=== PATIENT | male | born 1945 | race Caucasian/White ===

== ENCOUNTER 2016-12-24 07:55 | Outpatient (CLI) | payer MEDICARE, OTHER ==
[~2016-12-24] VITALS: Ht 172.7 cm; Wt 85.9 kg
--- NOTE | ~2016-12-24 | OP ---
PATIENT NAME: RYLEY NETTLES MEDICAL RECORD: [id number] :41 LOCATION:D.CAT ADMISSION DATE: SURGEON: LAMIN MELISSA MD DATE OF OPERATION: 12/24/2016 PROCEDURES: 1. PTCA stent LAD. 2. Selective coronary angiography. 3. Left heart catheterization. 4. Left ventriculogram. INDICATION: Angina and coronary artery disease. PROCEDURE IN DETAIL: After informed consent was obtained and after a detailed explanation of the risks, benefits, as well as alternative therapies, the patient elected to proceed with angiogram and angioplasty. The right femoral area is prepped and draped in normal sterile fashion. The right femoral artery was cannulated via modified Seldinger technique with placement of 6-Burmese sheath. All catheters exchanged through this sheath. FINDINGS: Left ventriculogram was performed in standard 30-degree ESTES view, reveals good cardiac wall motion throughout all segments. Overall ejection fraction estimated at 55%. SELECTIVE CORONARY ANGIOGRAPHY: 1. Left main showed no significant angiographic disease. 2. Left anterior descending has previously placed stents, these are widely patent; however, there is 75% stenosis proximal to this. There is approximately a 10 mm lesion and a 3.5-mm vessel with FRANCHESKA 3 flow. 3. The left circumflex shows mild irregularities, but no flow-limiting stenosis. 4. Right coronary has previously placed stents with no significant restenosis. No disease elsewise throughout the RCA or its branches. PTCA STENT OF THE LAD: The stent used was a 3.5 x 11 mm BioFreedom stent. Result was 0% residual stenosis, FRANCHESKA-3 flow. IMPRESSION: Successful percutaneous transluminal coronary angioplasty stent of the left anterior descending going from 75% initial stenosis to 0% residual. TRANSINT:[id number] Voice Confirmation ID: [id number] DOCUMENT ID: [id number] LAMIN MELISSA MD CC: [id number] DICTATION DATE: 12/24/16 1051 HEAD END DESIZING MACHINE OPERATOR: 12/24/16 2136 [facility] CLI 12/24/16 [place] [id number]
--- NOTE | ~2016-12-24 | HEMODYNAMI ---
PATIENT:RYLEY NETTLES MEDICAL RECORD: [id number] : 41 LOCATION:DCaitlynCAT ADMISSION DATE: 12/24/16 Generatedon:12/24/201610:49 Patient name: RYLEY NETTLES Patient #: [id number] SSN: DO B: 1945 Date of study: 12/24/2016 Page: Of Hemodynamic Procedure Report Patient Data Patient Demographics Procedure consent was obtained First Name: RYLEY Gender: Male Last Name: YOON : 1945 [facility] Initial: LEILANI Age: 71 year(s) Patient #: [id number] Race: Additional ID: [id number] Contact details Address: [address] [place] [address] [place] State: [place] City: [place] Zip code: [address] Past Medical History History of disease Date Diagnosis Comments Arrhythmias - Supraventricular tachycardias->Persistent AF Diabetes Hypertension Allergies: No known allergies Admission Admission Data Admission Date: 12/24/2016 Admission Time: 7:55 Admit Source: Other Insurance Payor: Medicare Height (in.): 68 BSA: 2 (m2) Height (cm.): 172.72 BMI: 28.74 (kg/m2) Weight (lbs.): 189 Weight (kg.): 85.73 Lab Results Lab Result Date: 12/24/2016 Lab Result Time: 0:00 Biochemistry Name Units Result Min Max BUN mg/dl 21 --(----)-* 7 18 CK-MB ng/ml 1.3 --(-*--)-- 0 3.6 Creatinine mg/dl 1 --(--*-)-- 0.6 1.3 Creatinine l 110 --(-*--)-- 21 215 Kinase Troponin l ng/ml 0.043 --(--*-)-- 0 0.06 CBC Name Units Result Min Max Hematocrit % 39.1 -*(----)-- 42 54 Hemoglobin g/dl 13.2 -*(----)-- 13.5 17.5 Platelets 10^3/l 128 -*(----)-- 130 400 Procedure Procedure Types Cath Procedure Diagnostic Procedure [facility] w/Coronaries PCI Procedure Coronary Stent Initial Miscellaneous Procedures Moderate Sedation up to 15 minutes Procedure Description Procedure Date Procedure Date: 12/24/2016 Procedure Start Time: 10:30 Procedure End Time: 10:46 Procedure Staff Name Function Rick Kumar MD Performing Physician Derrell Morel RT Scrub Vanessa Sweet RN Nurse Sindi Oglesby RT Monitor Procedure Data Cath Procedure Fluoroscopy Diagnostic fluoroscopy Total fluoroscopy Time: 2.4 time: 2.4 min min Contrast Material Contrast Material Type Amount (ml) Isovue 300 94 Entry Location Entry Primary Successful Side Size Upsize Upsize Entry Closure Succes sful Closure Location (Fr) 1 (Fr) 2 (Fr) Remarks Device Remarks Femoral Right 5 Fr 6 Fr Exoseal artery Short Estimated blood loss: 10 ml Diagnostic catheters Device Type Used For End Catheter Placement Cordis 5Fr Pigtail LV Angiography Catheter (MP) Cordis 5Fr JL 4.0 Catheter (MP) Cordis 5Fr 3DRC Catheter Right Coronary (MP) Angiography Procedure Complications No complications Procedure Medications Medication Administration Route Dosage Oxygen NC 2 l/min Heparin Flush Bag added to field 2 bags (1000units/500ml NS) Lidocaine 2% added to field 20 Fentanyl I.V. 50 mcg Versed I.V. 1 mg Fentanyl I.V. 25 mcg Versed I.V. 0.5 mg Heparin Bolus I.V. 4000 units Integrilin (Bolus I.V. 7.9 ml 2mg/ml) Fentanyl I.V. 25 mcg Versed I.V. 0.5 mg Plavix P.O. 600 mg Hemodynamics Rest BSA: 2 (m2) HGB: 13.2 (g/dl) O2 Consumption: Estimated: 215.87 (ml/min) O2 Consu mption indexed: Estimated:107.94 (ml/min/m) Heart Rate: 51 (bpm) Snapshots Pre Cath Intra NCS Post Cath Vital Signs Time Heart Resp SPO2 NIBP (mmHg) Rhythm Pain Sedation Rate (ipm) (%) Status Level (bpm) 10:18:07 45 20 100 186/80(103) NSR 0 (11) 10(A) , No pain 10:22:46 48 17 100 160/116(153) NSR 0 (11) 10(A) , No pain 10:28:05 45 19 99 149/77(130) NSR 0 (11) 9(A) , No pain 10:32:32 47 22 98 151/74(126) NSR 0 (11) 9(A) , No pain 10:36:43 54 17 94 131/77(116) NSR 0 (11) 9(A) , No pain 10:40:59 55 18 95 130/72(115) NSR 0 (11) 10(A) , No pain 10:45:20 53 28 96 127/74(92) NSR 0 (11) 10(A) , No pain Medications Time Medication Route Dose Verified Delivered Reason Notes Effectiveness by by 10:18:35 Oxygen NC 2 Vanessa Vanessa used for l/min Sweet Sweet emissions repair technician RN 10:18:43 Heparin Flush added 2 Vanessa Vanessa used for Bag to bags Sweet Sweet procedure (1000units/500ml field RN RN NS) 10:18:53 Lidocaine 2% added 20ml Vanessa Vanessa used for to vial Sweet Sweet procedure field RN RN 10:27:54 Fentanyl I.V. 50 Vanessa Vanessa for sedation mcg Sweet Sweet RN RN 10:28:01 Versed I.V. 1 mg Vanessa Vanessa for sedation Sweet Sweet RN RN 10:30:29 Fentanyl I.V. 25 Vanessa Vanessa for sedation mcg Sweet Sweet RN RN 10:30:35 Versed I.V. 0.5 Vanessa Vanessa for sedation mg Sweet Sweet RN RN 10:36:57 Integrilin I.V. 7.9 Vanessa Vanessa for 2.1 (Bolus 2mg/ml) ml Sweet Sweet anticoagulation INTEGRILIN RN RN WASTED 10:36:58 Heparin Bolus I.V. 4000 Vanessa Vanessa for units Sweet Sweet anticoagulation RN RN 10:37:51 Fentanyl I.V. 25 Vanessa Vanessa for sedation mcg Sweet Sweet RN RN 10:38:01 Versed I.V. 0.5 Vanessa Vanessa for sedation mg Sweet Sweet RN RN 10:40:41 Plavix P.O. 600 Vanessa Vanessa for mg Sweet Sweet antiplatelet RN RN therapy Procedure Log Time Note 10:03:35 Vanessa Sweet RN sent for patient. Start room use. 10:03:36 Time tracking: Regular hours 10:03:40 Plan of Care:Hemodynamics will remain stable., Cardiac rhythm will remain stable., Comfort level will be maintained., Respiratory function will remain adequate., Patient/ family verbilizes understanding of procedure., Procedure tolerated without complication., Recovers from procedure without complications.. 10:03:44 Use device set Femoral Dx 10:03:47 Acist Syringe opened to sterile field. 10:03:47 Bag Decanter opened to sterile field. 10:03:48 Medline Cath Pack opened to sterile field. 10:03:49 Terumo 5Fr [place] Sheath opened to sterile field. 10:03:49 St Chris 260cm J .035 wire opened to sterile field. 10:03:50 Acist Hand Control opened to sterile field. 10:03:51 Acist Manifold opened to sterile field. 10:03:51 Diagnostic Infinity 5Fr Multipack catheter opened to sterile field. 10:03:52 Tegaderm 4 x 4 opened to sterile field. 10:08:54 Patient received from Pre/Post Procedure Room to CCL 1 Alert and oriented. Tansferred to table in Supine position. 10:08:55 Warm blankets applied, and al hugger turned on for patient comfort. 10:08:55 Correct patient and procedure confirmed by team. 10:08:57 Signed procedure consent form obtained from patient. 10:08:58 ECG and BP/O2 sat monitors applied to patient. 10:16:38 Vital chart was started 10:16:39 Baseline sample Acquired. 10:16:43 Rhythm: sinus bradycardia 10:16:45 Full Disclosure recording started 10:16:51 H&P Date Dictated: 12/13/2016 Within 30 days and on chart., H&P Addendum completed by physician on day of procedure. (MUST COMPLETE FOR ALL OUTPATIENTS). 10:16:52 Pre-procedure instructions explained to patient. 10:16:52 Pre-op teaching completed and patient verbalized understanding. 10:16:53 Family in waiting room. 10:16:56 Patient NPO since Midnight. 10:17:01 Patient allergic to No known allergies 10:17:04 Is the patient allergic to Iodine/contrast media? No. 10:17:06 Is patient on blood thinner?No 10:17:08 Patient diabetic? Yes. 10:17:09 If diabetic: On Metformin? Yes 10:17:11 If on Metformin: Last Dose? 12/22/2016 10:17:16 Previous problem with sedation/anesthesia? No ? 10:17:17 Snore? Yes 10:17:18 Sleep apnea? No 10:17:19 Deviated septum? No 10:17:20 Opens mouth fully? Yes 10:17:21 Sticks out tongue? Yes 10:17:23 Airway obstruction? No ? 10:17:26 Dentures? No ? 10:18:35 Oxygen 2 l/min NC was administered by Vanessa Sweet RN; used for procedure; 10:18:43 Heparin Flush Bag (1000units/500ml NS) 2 bags added to field was administered by Vanessa Sweet RN; used for procedure; 10:18:49 Pre procedure: right dorsailis pedis pulse 2+ Normal; easily identifiable; not easily obliterated 10:18:52 Patient pain scale 0/10 ?. 10:18:53 Lidocaine 2% 20ml vial added to field was administered by Vanessa Sweet RN; used for procedure; 10:19:05 IV patent on arrival in left hand with 0.9% NaCl at [facility]. 10:22:31 Lab Result : BUN 21 mg/dl 10:22:31 Lab Result : CK-MB 1.3 ng/ml 10:22:31 Lab Result : Creatinine 1 mg/dl 10:22:31 Lab Result : Creatinine Kinase 110 l 10:22:31 Lab Result : Hemoglobin 13.2 g/dl 10:22:31 Lab Result : Troponin l 0.043 ng/ml 10:22:31 Lab Result : Platelets 128 10^3/l 10:22:31 Lab Result : Hematocrit 39.1 % 10:22:35 Lab results completed and on chart. 10:22:37 Right groin area was prepped with chlora-prep and draped in sterile fashion 10:22:38 Alarms reviewed by R. N. 10:22:39 Sharps counted by scrub and verified by R.N. 10:22:50 Patient Height : 172.72 cm 10:22:53 Patient Weight : 85.73 kg 10:22:56 Admit Source: Other 10:23:01 Insurance Payor : Medicare 10:27:15 Zero performed for pressure channel P1 10:27:18 Final Timeout: patient, procedure, and site verified with staff and physician. All members of the team are in agreement. 10:27:20 Right groin site verified by team. 10:27:23 Physical assessment completed. ASA score P 2 - A patient with mild systemic disease as per Rick Kumar MD. 10:27:26 Sedation plan: IV Moderate Sedation Versed, Fentanyl 10:27:54 Fentanyl 50 mcg I.V. was administered by Vanessa Sweet RN; for sedation; 10::01 Versed 1 mg I.V. was administered by Vanessa Sweet RN; for sedation; 10:29:21 Procedure started. 10:30:17 Local anesthetic to right femoral artery with Lidocaine 2% by Rick Kumar MD.INITIAL ACCESS ONLY 10::29 Fentanyl 25 mcg I.V. was administered by Vanessa Sweet RN; for sedation; 10:30:35 Versed 0.5 mg I.V. was administered by Vanessa Sweet RN; for sedation; 10::53 A 5 Fr sheath was inserted into the Right Femoral artery 10:31:18 A Cordis 5Fr Pigtail Catheter (MP) was advanced over the wire and used for LV Angiography. 10:32:25 LV gram done using ESTES 10:32:29 EF : 60 % 10:32:33 Injector settings: Ml/sec: 10, Volume: 20, 10:32:53 A Cordis 5Fr JL 4.0 Catheter (MP) was advanced over the wire and used for . 10:33:39 Merit BasixCompak Inflation Kit opened to sterile field. 10:33:40 Terumo 6Fr [place] Sheath opened to sterile field. 10:33:40 Murrell Whisper J 300cm 0.014 guide wire opened to sterile field. 10:33:43 Catheter removed. 10:33:48 A Cordis 5Fr 3DRC Catheter (MP) was advanced over the wire and used for Right Coronary Angiography. 10:34:31 Catheter removed. 10:34:52 Sheath upsized to a 6 Fr Short. 10:35:33 6 Fr XB 3.5 guide catheter was inserted over the wire 10:35:46 Cordis 6FR XB 3.5 guide catheter opened to sterile field. 10:36:56 Whisper wire advanced. 10:36:57 Integrilin (Bolus 2mg/ml) 7.9 ml I.V. was administered by Vanessa Sweet RN; for anticoagulation; 2.1 INTEGRILIN WASTED 10:36:58 Heparin Bolus 4000 units I.V. was administered by Vanessa Sweet RN; for anticoagulation; 10:37:51 Fentanyl 25 mcg I.V. was administered by Vanessa Sweet RN; for sedation; 10:38:01 Versed 0.5 mg I.V. was administered by Vanessa Sweet RN; for sedation; 10:38:51 Inflation Number: 1 A Biofreedom 3.5 x 11 stent (No Cost Implant) was prepped and advanced across the Prox LAD. The stent was deployed at 11 YVAN for 0:04 (min:sec). 10:38:59 Stent catheter was removed intact over wire. 10:38:59 Wire removed. 10:39:00 Guide catheter removed. 10:39:10 Sheath removed intact; hemostasis achieved with Exoseal to the Right Femoral artery. 10:39:13 Procedure ended.(Physican Out) 10:39:18 Fluoroscopy time 02.40 minutes. 10:40:02 Contrast amount:Isovue 300 94ml. 10:40:41 Plavix 600 mg P.O. was administered by Vanessa Sweet RN; for antiplatelet therapy; 10:40:42 Sharps counted by scrub and verified by R.N. 10:40:43 Insertion/operative site no bleeding no hematoma. 10:41:42 Post right femoral artery:stable, clean and dry 10:41:44 Post Procedure Pulses reassessed and unchanged 10:42:02 Post procedure: right dorsailis pedis pulse 2+ Normal; easily identifiable; not easily obliterated. 10:42:04 Post-procedure physical assessment completed. ASA score P 2 - A patient with mild systemic disease as per Rick Kumar MD. 10:42:07 Post procedure rhythm: unchanged. 10:42:09 Estimated blood loss: 10 ml 10:42:13 Post procedure instruction explained to patient.Patient verbalizes understanding. 10:42:14 Patient needs reinforcement of post procedure teaching. 10:42:45 Procedure type changed to Cath procedure, Diagnostic procedure, LHC, LHC w/Coronaries, PCI procedure, Coronary Stent Initial, Miscellaneous Procedures, Moderate Sedation up to 15 minutes 10:43:30 Procedure Complication : No complications 10:44:38 Cordis 6Fr Exoseal opened to sterile field. 10:45:44 Flouro Dose 2091.44 cGy/cm 10:46:25 Procedure and supply charges have been captured, reviewed, submitted and are correct. 10:46:26 See physician's report for complete and final results. 10:46:37 Vital chart was stopped 10:46:38 Report given to Pre/Post Procedure Room. 10:46:41 Patient transfered to Pre/Post Procedure Room with Stretcher. 10:46:47 Procedure ended. 10:46:47 Full Disclosure recording stopped 10:46:52 End room use (Document Last) Intervention Summary Intervention Notes Time ActionType Lesion and Equipment Action# Pressure Duration Attributes Used 10:38:51 Place stent Prox LAD Biofreedom 1 11 00:05 3.5 x 11 stent (No Cost Implant) Device Usage Item Name Manufacture Quantity Catalog Hospital Part Current Minimal Lot# / Number Charge Number Stock Stock Serial# Code Acist Acist 1 27905 648541 746173 125190 20 Syringe Medical Systems Inc Bag Microtek 1 2002S 680867 26886 258153 5 Decanter Medical Inc. Medline Cardinal 1 [id number] 362897 69872 311049 5 Cath Pack Health Terumo 5Fr Terumo 1 [id number] 293942 766452 905037 [address] Chris 1 994376 296983 962510 084705 30 260cm J .035 wire Acist Hand Acist 1 69143 240846 857915 187071 5 Control Medical Systems Inc Acist Acist 1 27241 807832 451565 719987 5 Manifold Medical Systems Inc Diagnostic Cardinal 1 [id number] 103645 53636 814560 30 Infinity Health 5Fr Multipack catheter Tegaderm 4 3M 1 1626W 542992 600434 159379 5 x 4 Cordis 5Fr Cardinal 1 [id number] 5 Pigtail Health Catheter (MP) Cordis 5Fr Cardinal 1 457300 5 JL 4.0 Health Catheter (MP) Merit Merit 1 [id number] 237250 197311 519620 15 BasixSarta Medical Inflation Kit Terumo 6Fr Terumo 1 [id number] 347578 174103 780420 40 [place] Sheath Murrell Murrell 1 [id number] 557587 921912 629714 5 Whisper J Vascular 300cm 0.014 guide wire Cordis 5Fr Cardinal 1 [id number] 5 [facility] Health Catheter (MP) Cordis 6FR Cardinal 1 [id number] 434634 678627 300949 2 XB 3.5 Health guide catheter Biofreedom Biosensors 1 [facility]2-3511 363227 565800 5 [id number] 3.5 x 11 [place] SA stent (No Cost Implant) Cordis 6Fr Cardinal 1 EX600 404006 062247 268250 10 [facility] iCIMS Signature Audit [place] Stage Time Signature Unsigned Intra-Procedure 12/24/2016 Sindi 10:49:03 AM Counts RT(R) Signatures Monitor : Sindi Signature : Counts RT Date : Time : [address] [address]
[~2016-12-24 07:55] MED LIST: ASPIRIN81 MG; FLOMAX0.4 MG; HYZAAR 100-12.51 TAB; JANUMET 50-1,001 TAB; LOVASTATIN20 MG PO; MULTIPLE VITAMI1 TA1; MYSOLINE 50 MG50 MG PO; PLAVIX75 MG PO; PROPRANOLOL HCL80 MG; VITAMIN B-121000 MCG
[2016-12-24 08:45] LABS: BASOPHILS 0.7 % (0-2); EOSINOPHILS 9.3 % (0-7); HEMATOCRIT 39.1 % (42.0-54.0); HEMOGLOBIN 13.2 g/dL (13.5-17.5); LYMPHOCYTES 30.5 % (15-50); MCH 33.3 pg (26.0-34.0); MCHC 33.8 g/dL (31.0-37.0); MCV 98.7 fL (80.0-100.0); MEAN PLATELET VOLUME 10.4 fL (7.4-10.4); MONOCYTES 11.5 % (2-11); PLATELET COUNT 128 10x3/uL (130-400); RBC 3.96 10x6/uL (4.20-6.10); RDW 12.3 % (11.5-14.5); WBC 4.4 10x3/uL (4.8-10.8)
[2016-12-24] MEDS ORDERED: BETAPACE160 MG PO (08:47)
[2016-12-24] MEDS ORDERED: GLUCOTROL 5 MG T5 MG PO (08:48)
[2016-12-24] MEDS ORDERED: PROPRANOLOL HCL80 MG PO (08:49)
[2016-12-24 08:57] VITALS: BP 159/71; Ht 172.7 cm; Wt 85.9 kg
[2016-12-24 09:13] LABS: CALC OSMOLALITY 281 mosm/kg (275-300); CALCIUM 8.7 mg/dL (8.5-10.1); CARBON DIOXIDE 28.5 mmol/L (21.0-32.0); CHLORIDE - SERUM 102 mmol/L (98-107); CKMB 1.3 U/L (0.0-3.6); CREATINE KINASE 110 UL (21-232); GLUCOSE 182 mg/dL (74-106); POTASSIUM - SERUM 4.1 mmol/L (3.5-5.1); SODIUM 137 mmol/L (136-145); TROPONIN-I 0.043 ng/mL (0.000-0.060); UREA NITROGEN 21 mg/dL (7-18); eGFR NON AFRICAN AMERICAN 78 mL/min (90-120)
[2016-12-24] MEDS ORDERED: IBUPROFEN400 MG PO (10:17)
--- NOTE | 2016-12-24 11:05 | NUR ---
1100 RECEIVED PT FROM CMV DRIVER, PT IS DROWSY, DENIES ANY C/O CHEST PAIN OR NAUSEA. BP 130/69, SINUS BRADYCARDIA RATE 47. RR IS EVEN AND UNLABORED, ON O2 AT 2 LPM VIA NC. DRESSING TO RIGHT GROIN IS CDI, NO BLEEDING OR HEMATOMA NOTED, AREA IS SOFT AND NONTENDER. PEDAL PULSES PALPABLE. CAP REFILL IS BRISK AND FEET WARM. FAMILY AT BEDSIDE, WILL CONTINUE TO MONITOR.
[2016-12-24] MEDS ORDERED: PLAVIX75 MG PO (11:07)
--- NOTE | 2016-12-24 11:30 | NUR ---
1130 VSS WITH CHEST PAIN DENIED 6 FR EXOSEAL R/GROIN CDI NO BLEEDING NO HEMATOMA NOTED. INSTRUCTED PATIENT TO KEEP HEAD FLAT ON PILLOW WITH RLE STRAIGHT
--- NOTE | 2016-12-24 11:45 | NUR ---
RESTING QUIETLY. VSS. 2L NC, NO RESP DISTRESS NOTED. RIGHT WRIST TR BAND IN PLACE, NO BLEEDING OR HEMATOMA NOTED. NO C/O CHEST PAIN OR NAUSEA AT THIS TIME. AT BEDSIDE, CALL LIGHT WITHIN REACH.
--- NOTE | 2016-12-24 12:16 | NUR ---
2L NC, NO RESP DISTRESS NOTED. VSS. RIGHT WRIST TR BAND IN PLACE, NO BLEEDING OR HEMATOMA NOTED. WILL CONTINUE TO MONITOR.
--- NOTE | 2016-12-24 13:15 | NUR ---
RESTING QUIETLY. VSS. 2L NC, NO RESP DISTRESS NOTED. SANDWICH TRAY AND DRINK GIVEN. NO C/O AT THIS TIME.
--- NOTE | 2016-12-24 14:25 | NUR ---
HOB ELEVATED 30 DEGREES. RIGHT GROIN 6F EXO CDI, NO BLEEDING OR HEMATOMA NOTED.
--- NOTE | 2016-12-24 14:45 | NUR ---
LEFT HAND PIV D/C'D WITH CATHETER INTACT, BAND AID TO SITE. UP TO BEDSIDE TO GET DRESSED.
--- NOTE | 2016-12-24 14:52 | NUR ---
UP TO RESTROOM TO VOID.
--- NOTE | 2016-12-24 14:56 | NUR ---
DISCHARGE INSTRUCTIONS GIVEN, VERBALIZED UNDERSTANDING. PLAVIX PRESCRIPTION GIVEN, CALLED IN TO [facility] ON [address].
--- NOTE | 2016-12-24 15:03 | NUR ---
TAKEN OUT VIA WHEELCHAIR BY CATH CHIEF LIBRARIAN BRANCH. LEFT FACILITY WITH AND ALL PERSONAL BELONGINGS.
== END 2016-12-24 15:03 | disposition home or self-care (01) ==
LOC: D.CATH 07:55
PROVIDERS: Internal Medicine Interventional Cardiology
DX: I25.119 Atherosclerotic heart disease of native coronary artery with unspecified angina pectoris (principal); Z95.5 Presence of coronary angioplasty implant and graft; Z00.6 Encounter for examination for normal comparison and control in clinical research program; Z01.812 Encounter for preprocedural laboratory examination
CPT/HCPCS: 93458; C9600

== ENCOUNTER 2017-06-19 07:26 | Outpatient (CLI) | payer MEDICARE, OTHER ==
[~2017-06-19] VITALS: Ht 172.7 cm; Wt 86.4 kg
--- NOTE | ~2017-06-19 | HEMODYNAMI ---
PATIENT:RYLEY NETTLES MEDICAL RECORD: [id number] : 41 LOCATION:D.CAT ADMISSION DATE: 06/19/17 Generatedon:06/19/20179:15 Patient name: RYLEY NETTLES Patient #: [id number] SSN: DO B: 1945 Date of study: 06/19/2017 Page: Of Hemodynamic Procedure Report Patient Data Patient Demographics Procedure consent was obtained First Name: RYLEY Gender: Male Last Name: YOON : 1945 [facility] Initial: LEILANI Age: 72 year(s) Patient #: [id number] Race: Additional ID: [id number] Contact details Address: [address] [place] [address] [place] State: [place] City: [place] Zip code: [address] Past Medical History History of disease Date Diagnosis Comments Arrhythmias - Supraventricular tachycardias->Persistent AF Diabetes Hypertension Allergies: No known allergies Admission Admission Data Admission Date: 06/19/2017 Admission Time: 7:26 Height (in.): 5.9 BSA: 0.34 (m2) Height (cm.): 14.99 BMI: 3797.1 (kg/m2) Weight (lbs.): 188 Weight (kg.): 85.28 Procedure Procedure Types Cath Procedure Miscellaneous Procedures Moderate Sedation up to 15 minutes Peripheral Cath Diagnostic Procedure Cath Peripheral Jlirl-Iqghqbw-Zur-Off Procedure Description Procedure Date Procedure Date: 06/19/2017 Procedure Start Time: 9:10 Procedure End Time: 9:15 Procedure Staff Name Function Rick Kumar MD Performing Physician Sindi Oglesby RT Monitor Meeta Dumont RT Scrub Anton Oleary RN Nurse Colt Zhu RN Child & Adolescent Psychiatrist Procedure Data Cath Procedure Fluoroscopy Diagnostic fluoroscopy Total fluoroscopy Time: 0.2 time: 0.2 min min Diagnostic fluoroscopy Total fluoroscopy dose: 154 dose: 154 mGy mGy Contrast Material Contrast Material Type Amount (ml) Isovue 300 40 Entry Location Entry Primary Successful Side Size Upsize Upsize Entry Closure Succes sful Closure Location (Fr) 1 (Fr) 2 (Fr) Remarks Device Remarks Femoral Right 5 Fr Exoseal artery Estimated blood loss: 5 ml Diagnostic catheters Device Type Used For End Catheter Placement DIAGNOSTIC UF 5Fr Abdominal catheter ([id number]) aortogram with runoff Procedure Complications No complications Procedure Medications Medication Administration Route Dosage 0.9% NaCl I.V. 100 ml/hr Oxygen NC 2 l/min Heparin Flush Bag added to field 2 bags (1000units/500ml NS) Lidocaine 2% added to field 20 Versed I.V. 1 mg Fentanyl I.V. 50 mcg Hemodynamics Rest BSA: 0.34 (m2) O2 Consumption: Estimated: 36.51 (ml/min) O2 Consumption indexed: Estimated:107.38 (ml/min/m) Heart Rate: 50 (bpm) Snapshots Pre Cath Intra NCS Post Cath Vital Signs Time Heart Resp SPO2 etCO2 NIBP Rhythm Pain Sedation Rate (ipm) (%) (mmHg) (mmHg) Status Level (bpm) 8:45:02 50 22 99 29.5 132/75(93) NSR 0 (11) 10(A) , No pain 8:50:25 50 14 98 34.8 131/67(90) NSR 0 (11) 10(A) , No pain 8:55:45 49 13 96 28 123/65(86) NSR 0 (11) 10(A) , No pain 9:01:00 48 16 97 10.6 118/62(87) NSR 0 (11) 10(A) , No pain 9:05:41 46 13 99 31.8 123/63(95) NSR 0 (11) 9(A) , No pain 9:10:23 48 18 97 29.5 133/71(94) NSR 0 (11) 9(A) , No pain 9:15:08 49 14 95 34.1 125/68(89) NSR 0 (11) 9(A) , No pain Medications Time Medication Route Dose Verified Delivered Reason Notes Effec tiveness by by 8:46:33 0.9% NaCl I.V. 100 Anton Anton Per ml/hr Anirudh brown RN RN 8:46:45 Oxygen NC 2 Anton Anton Per l/min Anirudh brown RN RN 8:47:07 Heparin Flush added 2 Anton Anton used for Bag to bags Lorigan Lorigan procedure (1000units/500ml field RN RN NS) 8:47:23 Lidocaine 2% added 20ml Anton Anton for local to vial Lorigan Lorigan anesthetic field RN RN 9:07:52 Versed I.V. 1 mg Anton Anton for Lorigan Lorigan sedation RN RN 9:08:04 Fentanyl I.V. 50 Anton Anton for mcg Lorigan Lorigan sedation RN economic adviser Log Time Note 8:25:49 Colt Zhu RN sent for patient. Start room use. 8:33:11 Patient Height : 5.9 inches 8:33:14 Patient Weight : 188 lbs 8:33:51 Time tracking: Regular hours 8:33:53 Diagnostic Cath status Elective 8:33:59 Plan of Care:Hemodynamics will remain stable., Cardiac rhythm will remain stable., Comfort level will be maintained., Respiratory function will remain adequate., Patient/ family verbilizes understanding of procedure., Procedure tolerated without complication., Recovers from procedure without complications.. 8:34:47 Patient arrived from Pre/Post Procedure Room to [facility]. Patient remains on bed/stretcher for procedure. 8:34:48 Warm blankets applied, and al hugger turned on for patient comfort. 8:34:48 Correct patient and procedure confirmed by team. 8:34:49 Signed procedure consent form obtained from patient. 8:34:50 ECG and BP/O2 sat monitors applied to patient. 8:38:52 Full Disclosure recording started 8:44:07 Vital chart was started 8:44:14 Rhythm: sinus bradycardia 8:44:27 H&P Date Dictated: 06/04/2017 Within 30 days and on chart., H&P Addendum completed by physician on day of procedure. (MUST COMPLETE FOR ALL OUTPATIENTS). 8:44:29 Pre-procedure instructions explained to patient. 8:44:29 Pre-op teaching completed and patient verbalized understanding. 8:44:32 Family in waiting room. 8:44:34 Patient NPO since Midnight. 8:44:47 Patient allergic to No known allergies 8:44:49 Is the patient allergic to Iodine/contrast media? No. 8:44:50 Is patient on blood thinner?No 8:44:55 Patient diabetic? No. 8:44:58 Previous problem with sedation/anesthesia? No ? 8:44:59 Snore? No 8:45:00 Sleep apnea? No 8:45:01 Deviated septum? No 8:45:02 Opens mouth fully? Yes 8:45:02 Sticks out tongue? Yes 8:45:04 Airway obstruction? No ? 8:45:05 Dentures? No ? 8:46:33 0.9% NaCl 100 ml/hr I.V. was administered by Anton Oleary RN; Per physician; 8:46:45 Oxygen 2 l/min NC was administered by Anton Oleary RN; Per physician; 8:47:07 Heparin Flush Bag (1000units/500ml NS) 2 bags added to field was administered by Anton Oleary RN; used for procedure; 8:47:23 Lidocaine 2% 20ml vial added to field was administered by Anton Oleary RN; for local anesthetic; 8:48:19 Pre procedure: right dorsailis pedis pulse 1+ Palpable, but thready & weak; easily obliterated 8:48:22 Pre procedure: left dorsailis pedis pulse 1+ Palpable, but thready & weak; easily obliterated 8:48:24 Patient pain scale 0/10 ?. 8:48:29 IV patent on arrival in left hand with 0.9% NaCl at [facility]. 8:48:32 Lab results completed and on chart. 8:48:35 Bilateral groins area was prepped with chlora-prep and draped in sterile fashion 8:48:36 Alarms reviewed by R. N. 8:48:36 Sharps counted by scrub and verified by R.N. 8:48:47 Use device set CATH PACK 8:48:50 ACIST Syringe ([id number]) opened to sterile field. 8:48:50 ACIST Hand Control (13399) opened to sterile field. 8:48:51 ACIST Manifold (96911) opened to sterile field. 8:48:51 Medline Cath Pack ([id number]) opened to sterile field. 8:48:52 Bag Decanter () opened to sterile field. 8:48:53 DIAGNOSTIC WIRE .035 260cm J wire ([id number]) opened to sterile field. 8:49:13 PERCUTANEOUS ENTRY 19GA needle opened to sterile field. 8:52:20 Baseline sample Acquired. 8:53:34 Zero performed for pressure channel P1 8:54:37 Physician paged 8:56:56 Procedure type changed to Cath procedure, Miscellaneous Procedures, Moderate Sedation up to 15 minutes, Peripheral Cath Diagnostic Procedure, Cath Peripheral, Utfxc-Shbzltw-Plf-Off 9:05:49 Final Timeout: patient, procedure, and site verified with staff and physician. All members of the team are in agreement. 9:05:54 Right groin site verified by team. 9:05:57 Physical assessment completed. ASA score P 2 - A patient with mild systemic disease as per Rick Kumar MD. 9:06:00 Sedation plan: IV Moderate Sedation Medication:Versed, Fentanyl 9:07:52 Versed 1 mg I.V. was administered by Anton Oleary RN; for sedation; 9:08:04 Fentanyl 50 mcg I.V. was administered by Anton Oleary RN; for sedation; 9:10:23 Procedure started. 9:10:27 Local anesthetic to right femoral artery with Lidocaine 2% by Rick Kumar MD.INITIAL ACCESS ONLY 9:10:47 A 5 Fr sheath was inserted into the Right Femoral artery 9:11:14 A DIAGNOSTIC UF 5Fr catheter ([id number]) was advanced over the wire and used for Abdominal aortogram with runoff. 9:12:25 EXOSEAL 5Fr (EX500) opened to sterile field. 9:12:30 Catheter removed. 9:12:37 Sheath removed intact; hemostasis achieved with Exoseal to the Right Femoral artery. 9:12:39 Procedure ended.(Physican Out) 9:12:48 Fluoroscopy time 00.20 minutes. 9:12:52 Flurop Dose total: 154 9:12:52 Fluoroscopy dose: 154 mGy 9:13:00 Contrast amount:Isovue 300 40ml. 9:13:02 Sharps counted by scrub and verified by R.N. 9:13:03 Insertion/operative site no bleeding no hematoma. 9:13:08 Post-op/insertion site Right Femoral artery dressed using a 4 x 4 and Tegaderm. 9:13:16 Post right femoral artery:stable, soft, clean and dry 9:13:18 Post Procedure Pulses reassessed and unchanged 9:13:20 Post-procedure physical assessment completed. ASA score P 2 - A patient with mild systemic disease as per Rick Kumar MD. 9:13:22 Post procedure rhythm: unchanged. 9:13:30 Estimated blood loss: 5 ml 9:13:31 Post procedure instruction explained to patient.Patient verbalizes understanding. 9:13:32 Patient needs reinforcement of post procedure teaching. 9:13:37 Procedure Complication : No complications 9:13:39 See physician's report for complete and final results. 9:15:03 Procedure and supply charges have been captured, reviewed, submitted and are correct. 9:15:08 Vital chart was stopped 9:15:10 Report given to Pre/Post Procedure Room. 9:15:13 Patient transfered to Pre/Post Procedure Room with Stretcher. 9:15:21 Procedure ended. 9:15:21 Full Disclosure recording stopped 9:15:23 End room use (Document Last) Device Usage Item Name Manufacture Quantity Catalog Hospital Part Current Minimal Lot# / Number Charge Number Stock Stock Serial# Code ACIST Acist 1 56479 739584 200189 266914 20 Syringe Medical (97319) Systems Inc ACIST Hand Acist 1 91028 355529 528274 047647 5 Control Medical (01999) Systems Inc ACIST Acist 1 19295 769874 313234 584794 5 Manifold Medical (60727) Systems Inc Medline Cath Cardinal 1 [id number] 586338 51939 493538 5 Pack Health ([id number]) Bag Decanter Microtek 1 2001S 814022 38574 436210 5 (2001S) Medical Inc. DIAGNOSTIC [facility] Chris 1 030580 182620 394109 663981 30 WIRE .035 260cm J wire (624419) PERCUTANEOUS Cook Medical 1 [id number] 491867 182478 5 ENTRY 19GA needle DIAGNOSTIC Cardinal 1 [id number] 176655 929560 890064 10 UF 5Fr Health catheter ([id number]) EXOSEAL 5Fr Cardinal 1 EX500 697017 370100 317978 10 (EX500) Health Signature Audit Cameron Stage Time Signature Unsigned Intra-Procedure 06/19/2017 Sindi 9:15:33 AM Counts RT(R) Signatures Monitor : Sindi Signature : Counts RT Date : Time : [facility] [address] [place] [address]
[~2017-06-19 07:26] MED LIST changes: +BETAPACE160 MG PO; +GLUCOTROL 5 MG T5 MG PO; +IBUPROFEN400 MG PO; +PROPRANOLOL HCL80 MG PO
[2017-06-19] MEDS ORDERED: FLUTICASONE PRO16 GM NASAL (07:46)
[2017-06-19] MEDS ORDERED: ZONEGRAN100 MG PO (07:49)
[2017-06-19 07:54] VITALS: BP 149/55; Ht 172.7 cm; Wt 86.4 kg
[2017-06-19 08:06] LABS: BASOPHILS 0.4 % (0-2); EOSINOPHILS 8.6 % (0-7); HEMATOCRIT 40.3 % (42.0-54.0); HEMOGLOBIN 13.8 g/dL (13.5-17.5); IMMATURE GRANULOCYTES 0.4 % (0-5); LYMPHOCYTES 29.9 % (15-50); MCH 33.2 pg (26.0-34.0); MCHC 34.2 g/dL (31.0-37.0); MCV 96.9 fL (80.0-100.0); MEAN PLATELET VOLUME 10.4 fL (7.4-10.4); MONOCYTES 8.4 % (2-11); NEUTROPHILS 52.3 % (40-80); RBC 4.16 10x6/uL (4.20-6.10); RDW 12.5 % (11.5-14.5); WBC 5.7 10x3/uL (4.8-10.8)
[2017-06-19 08:10] LABS: PLATELET COUNT 157 10x3/uL (130-400)
[2017-06-19 08:16] LABS: ANION GAP 15.7 mmol/L (8-16); CALCIUM 8.8 mg/dL (8.5-10.1); CARBON DIOXIDE 24.6 mmol/L (21.0-32.0); CREATININE - SERUM 1.1 mg/dL (0.6-1.3); POTASSIUM - SERUM 4.3 mmol/L (3.5-5.1)
--- NOTE | 2017-06-19 09:58 | NUR ---
0940 LYING FLAT, ROOM AIR. SINUS FRANCISCO ON FILM OR TAPE LIBRARIAN, RATE 53 WNO C/O CHEST PAIN. PULSES PALP X 4 WITH BRISK CAP REFILL. R GROIN 5F EXOSEAL C/D/I W NO HEMATOMA OR BLEEDING. AT BEDSIDE. DISCUSSED IMPORTANCE OF KEEPING RLE STRAIGHT AND HEAD FLAT ON PILLOW TO PREVENT BLEEDING.
--- NOTE | 2017-06-19 10:35 | NUR ---
1010 REMAINS FLAT, ROOM AIR. ALL VITALS WNL. EATING TURKEY SANDWICH AND SIPPING WATER WITH ASSIST FROM . R GROIN REMAINS C/D/I W NO HEMATOMA OR BLEEDING.
--- NOTE | 2017-06-19 11:01 | NUR ---
1100 HOB ELEVATED, PIV REMOVED FROM LEFT HAND WITH BANDAID APPLIED. WILL MONITOR R GROIN FOR BLEEDING. AT BEDSIDE.
--- NOTE | 2017-06-19 11:15 | NUR ---
RIGHT GROIN 5F EXOSEAL CDI, NO BLEEDING OR HEMATOMA NOTED. UP TO BEDSIDE TO GET DRESSED.
--- NOTE | 2017-06-19 11:20 | NUR ---
AMBULATED TO RESTROOM TO VOID.
--- NOTE | 2017-06-19 11:27 | NUR ---
DISCHARGE INSTRUCTIONS GIVEN, VERBALIZED UNDERSTANDING.
--- NOTE | 2017-06-19 11:40 | NUR ---
TAKEN OUT VIA WHEELCHAIR BY CATH SPECIAL LIBRARIAN. LEFT FACILITY WITH FAMILY AND ALL PERSONAL BELONGINGS.
--- NOTE | 2017-06-25 12:15 | OP ---
PATIENT NAME: RYLEY NETTLES MEDICAL RECORD: [id number] :41 LOCATION:D.CAT ADMISSION DATE: SURGEON: LAMIN MELISSA MD DATE OF OPERATION: 06/19/2017 PROCEDURES: 1. Aortofemoral runoff. 2. Abdominal aortography. INDICATION: Leg pain compatible with claudication. PROCEDURE IN DETAIL: After informed consent was obtained and after detailed explanation of risks, benefits as well as alternative therapies, the patient elected to proceed with angiogram and aortofemoral runoff. The right femoral area was prepped and draped in normal sterile fashion. Right femoral artery was cannulated via modified Seldinger technique with placement of 5-Italian sheath. All catheters were exchanged through this sheath. FINDINGS: The abdominal aortography was performed. The catheter was pulled down for aortofemoral runoff. Abdominal aortography reveals no significant abdominal aortic disease. No dissection or aneurysm formation. No renal artery stenosis. RIGHT LEG: a. Iliac: The common internal and external iliacs have mild irregularities, but no flow-limiting stenosis. b. Femoral system: The common, superficial, and deep femoral have mild irregularities, but no flow-limiting stenosis. c. Popliteal and infrapopliteal vessels are widely patent with good 3-vessel runoff to the foot. LEFT LEG: a. Iliac: The common internal and external iliacs have mild irregularities, but no flow-limiting stenosis. b. Femoral system: The common, superficial, and deep femoral have mild irregularities, but no flow-limiting stenosis. c. Popliteal and infrapopliteal vessels are widely patent with good 3-vessel runoff to the foot. OVERALL IMPRESSION: No significant peripheral vascular disease, leg pain is non-arterial vascular in etiology. TRANSINT:[id number] Voice Confirmation ID: [id number] DOCUMENT ID: [id number] LAMIN MELISSA MD at 1215 CC: [id number] DICTATION DATE: 06/19/17917 WELDER ASSEMBLER: 06/19/17 1207 DEP CLI 06/19/17 [place] [id number]
== END 2017-06-19 11:40 | disposition home or self-care (01) ==
LOC: D.CATH 07:26
PROVIDERS: Internal Medicine Interventional Cardiology
DX: I70.219 Atherosclerosis of native arteries of extremities with intermittent claudication, unspecified extremity (principal); I25.10 Atherosclerotic heart disease of native coronary artery without angina pectoris; I48.0 Paroxysmal atrial fibrillation; I10 Essential (primary) hypertension; Z01.812 Encounter for preprocedural laboratory examination

== ENCOUNTER 2017-10-22 21:39 | Emergency (ER) | payer MEDICARE, OTHER ==
[~2017-10-22 21:39] MED LIST changes: +FLUTICASONE PRO16 GM NASAL; +ZONEGRAN100 MG PO
[2017-10-22 22:14] LABS: APPEARANCE CLEAR (CLEAR); BILIRUBIN NEGATIVE (NEGATIVE); COLOR YELLOW (YELLOW); GLUCOSE NEGATIVE (NEGATIVE); KETONE NEGATIVE (NEGATIVE); NITRITE NEGATIVE (NEGATIVE); PROTEIN NEGATIVE (NEGATIVE); SPECIFIC GRAVITY 1.015 (1.005-1.020); UROBILINOGEN NORMAL (NORMAL)
[2017-10-22 23:00] LABS: BASOPHILS 0.3 % (0-2); EOSINOPHILS 7.3 % (0-7); HEMOGLOBIN 13.5 g/dL (13.5-17.5); IMMATURE GRANULOCYTES 0.5 % (0-5); LYMPHOCYTES 34.4 % (15-50); MCH 33.1 pg (26.0-34.0); MCHC 33.8 g/dL (31.0-37.0); MEAN PLATELET VOLUME 11.1 fL (7.4-10.4); MONOCYTES 7.8 % (2-11); NEUTROPHILS 49.7 % (40-80); PLATELET COUNT 157 10x3/uL (130-400); RBC 4.08 10x6/uL (4.20-6.10); RDW 12.9 % (11.5-14.5)
[2017-10-22 23:09] LABS: ALBUMIN 3.7 g/dL (3.4-5.0); ALKALINE PHOSPHATASE 53 U/L (46-116); ALT (SGPT) 34 U/L (10-68); BILIRUBIN - TOTAL 0.35 mg/dL (0.2-1.3); CALC OSMOLALITY 291 mosm/kg (275-300); CALCIUM 9.3 mg/dL (8.5-10.1); CARBON DIOXIDE 24.4 mmol/L (21.0-32.0); CHLORIDE - SERUM 107 mmol/L (98-107); CREATININE - SERUM 1.1 mg/dL (0.6-1.3); POTASSIUM - SERUM 3.3 mmol/L (3.5-5.1); PROTEIN - SERUM 7.5 g/dL (6.4-8.2); SODIUM 144 mmol/L (136-145); UREA NITROGEN 24 mg/dL (7-18); eGFR NON AFRICAN AMERICAN 69 mL/min (90-120)
[2017-10-22 23:16] LABS: GLUCOSE 117 mg/dL (74-106)
[2017-10-22 23:21] LABS: CKMB 1.6 U/L (0.0-3.6); CREATINE KINASE 74 UL (21-232); PRO BNP 369 pg/mL (0-125); TROPONIN-I 0.032 ng/mL (0.000-0.060)
== END 2017-10-23 00:25 | disposition home or self-care (01) ==
LOC: D.ER 21:39
PROVIDERS: Family Medicine
DX: R53.1 Weakness (principal); E87.6 Hypokalemia; R06.00 Dyspnea, unspecified; E11.9 Type 2 diabetes mellitus without complications

== ENCOUNTER 2017-11-06 07:57 | Outpatient (CLI) | payer MEDICARE, OTHER ==
[~2017-11-06] VITALS: Ht 172.7 cm; Wt 84.1 kg
--- NOTE | ~2017-11-06 | OP ---
PATIENT NAME: RYLEY NETTLES MEDICAL RECORD: [id number] :41 LOCATION:D.CAT ADMISSION DATE: SURGEON: LAMIN MELISSA MD DATE OF OPERATION: 11/06/2017 PROCEDURES: 1. PTCA stent LAD. 2. Intravascular ultrasound. 3. Left heart catheterization. 4. Selective coronary angiography. 5. Left ventriculogram. INDICATION: Angina and coronary artery disease. PROCEDURE IN DETAIL: After informed consent was obtained and after a detailed description of the risks, benefits as well as alternative therapies, the patient elected to proceed with angiogram and angioplasty. The right femoral area was prepped and draped in normal sterile fashion. Right femoral artery was cannulated via modified Seldinger technique with placement of 6-Kyrgyz sheath. All catheters exchanged through this sheath. FINDINGS: The left ventriculogram was performed in standard 30-degree ESTES view, reveals good cardiac wall motion throughout all segments. Overall ejection fraction estimated at 55% to 60%. SELECTIVE CORONARY ANGIOGRAPHY: 1. Left main is with no significant angiographic disease. 2. Left anterior descending has previously placed stents with up to 70% in-stent restenosis confirmed by intravascular ultrasound. 3. Left circumflex has moderate irregularities, but no flow-limiting stenosis. 4. Right coronary artery has pkrk-tm-hdsqflsq irregularities, but no flow-limiting stenosis. PTCA STENT OF THE LAD: The stent used was a 3.5 x 38 mm Ramon. Result was 0% residual stenosis. OVERALL IMPRESSION: Successful percutaneous transluminal angioplasty stent of the left anterior descending going from greater than 70% initial stenosis to 0% residual stenosis. TRANSINT:[id number] Voice Confirmation ID: [id number] DOCUMENT ID: [id number] LAMIN MELISSA MD at 1351 CC: [id number] DICTATION DATE: 11/06/17 1103 HOOP PUNCH AND COILER OPERATOR HELPER: 11/06/17 1345 DEP CLI 11/06/17 [place] [id number] [place] [address]
--- NOTE | ~2017-11-06 | HEMODYNAMI ---
PATIENT:RYLEY NETTLES MEDICAL RECORD: [id number] : 41 LOCATION:[facility] ADMISSION DATE: 11/06/17 Generatedon:11/06/201711:04 Patient name: RYLEY NETTLES Patient #: [id number] SSN: DO B: 1945 Date of study: 11/06/2017 Page: Of Hemodynamic Procedure Report Patient Data Patient Demographics Procedure consent was obtained First Name: RYLEY Gender: Male Last Name: YOON : 1945 [facility] Initial: LEILANI Age: 72 year(s) Patient #: [id number] Race: Additional ID: [id number] Contact details [address]: [address] [place] [address] [place] State: [place] City: [place] Zip code: [address] Past Medical History History of disease Date Diagnosis Comments Arrhythmias - Supraventricular tachycardias->Persistent AF Diabetes Hypertension Allergies: No known allergies Admission Admission Data Admission Date: 11/06/2017 Admission Time: 7:57 Admit Source: Other Height (in.): 5.9 BSA: 0.33 (m2) Height (cm.): 14.99 BMI: 3675.92 (kg/m2) Weight (lbs.): 182 Weight (kg.): 82.55 Lab Results Lab Result Date: 11/06/2017 Lab Result Time: 8:30 Biochemistry Name Units Result Min Max BUN mg/dl 22 --(----)-* 7 18 Creatinine mg/dl 1.1 --(--*-)-- 0.6 1.3 CBC Name Units Result Min Max Hematocrit % 40.8 -*(----)-- 42 54 Hemoglobin g/dl 13.8 --(*---)-- 13.5 17.5 Procedure Procedure Types Cath Procedure Diagnostic Procedure LHC LH w/Coronaries FFR/IVUS Intra-Coronary IVUS Initial Sedation Charges Moderate Sedation up to 15 minutes PCI Procedure Coronary Stent Coronary Stent Initial Procedure Description Procedure Date Procedure Date: 11/06/2017 Procedure Start Time: 10:45 Procedure End Time: 11:03 Procedure Staff Name Function Rick Kumar MD Performing Physician Derrell Morel RT Scrub Meeta Dumont RT Monitor Anton Oleary RN Nurse Procedure Data Cath Procedure Fluoroscopy Diagnostic fluoroscopy Total fluoroscopy Time: 4.3 time: 4.3 min min Diagnostic fluoroscopy Total fluoroscopy dose: dose: 25405 mGy 92375 mGy Contrast Material Contrast Material Type Amount (ml) Isovue 300 104 Entry Location Entry Primary Successful Side Size Upsize Upsize Entry Closure Succes sful Closure Location (Fr) 1 (Fr) 2 (Fr) Remarks Device Remarks Femoral Right 5 Fr 6 Fr Exoseal artery Short Estimated blood loss: 10 ml Diagnostic catheters Device Type Used For End Catheter Placement MULTIPACK Pigtail 5 Fr Procedure catheter MULTIPACK JL 4.0 5Fr Procedure catheter MULTIPACK 3DRC 5Fr Procedure catheter Procedure Complications No complications Procedure Medications Medication Administration Route Dosage 0.9% NaCl I.V. 100 ml/hr Oxygen etCO2 Nasal cannula 2 l/min Heparin Flush Bag added to field 2 bags (1000units/500ml NS) Lidocaine 2% added to field 20 Versed I.V. 1 mg Fentanyl I.V. 50 mcg Versed I.V. 1 mg Fentanyl I.V. 50 mcg Heparin Bolus I.V. 4000 units Hemodynamics Rest BSA: 0.33 (m2) HGB: 13.8 (g/dl) O2 Consumption: Estimated: 34.84 (ml/min) O2 Con sumption indexed: Estimated:105.58 (ml/min/m) Heart Rate: 45 (bpm) Snapshots Pre Cath Intra NCS Post Cath Vital Signs Time Heart Resp SPO2 etCO2 NIBP Rhythm Pain Sedation Rate (ipm) (%) (mmHg) (mmHg) Status Level (bpm) 10:22:36 47 14 97 21.7 109/63(87) NSR 0 (11) 10(A) , No pain 10:27:10 41 13 98 27.7 112/67(86) NSR 0 (11) 10(A) , No pain 10:31:47 45 18 98 29.3 107/56(77) NSR 0 (11) 10(A) , No pain 10:36:23 45 14 98 29.3 105/57(70) NSR 0 (11) 10(A) , No pain 10:40:58 46 12 98 33 105/57(85) NSR 0 (11) 10(A) , No pain 10:46:15 47 14 98 33.8 115/60(87) NSR 0 (11) 9(A) , No pain 10:50:54 54 19 97 38.3 104/59(72) NSR 0 (11) 9(A) , No pain 10:55:28 51 19 97 38.3 107/60(86) NSR 0 (11) 9(A) , No pain 11:00:40 52 19 97 20.2 111/55(77) NSR 0 (11) 9(A) , No pain Medications Time Medication Route Dose Verified Delivered Reason Notes Effectiveness by by 10:11:15 0.9% NaCl I.V. 100 Anton Anton Per physician ml/hr Anirudh Oleary RN RN 10:11:27 Oxygen etCO2 2 Anton Anton Per physician Nasal l/min Anirudh Oleary cannula RN RN 10:11:37 Heparin Flush added 2 Anton Anton used for Bag to bags Anirudh Oleary procedure (1000units/500ml field BRO RN NS) 10:11:49 Lidocaine 2% added 20ml Anton Anton for local to vial Anirudh Oleary anesthetic field BRO RN 10:42:26 Versed I.V. 1 mg Anton Anton for sedation Anirudh Oleary RN RN 10:42:51 Fentanyl I.V. 50 Anton Anton for sedation chetna Oleary RN RN 10:46:17 Versed I.V. 1 mg Anton Anton for sedation Anirudh Oleary RN RN 10:46:22 Fentanyl I.V. 50 Anton Anton for sedation mcg Anirudh Oleary RN RN 10:55:46 Heparin Bolus I.V. 4000 Anton Anton for units Anirudh Oleary anticoagulation RN solution manager Log Time Note 9:59:28 Informed consent obtained and on chart 9:59:32 Admit Source: Other 10:00:05 Diagnostic Cath status Elective 10:00:07 Time tracking: Regular hours (M-F 7:00 - 5:00) 10:00:10 Plan of Care:Hemodynamics will remain stable., Cardiac rhythm will remain stable., Comfort level will be maintained., Respiratory function will remain adequate., Patient/ family verbilizes understanding of procedure., Procedure tolerated without complication., Recovers from procedure without complications.. 10:00:19 H&P Date Dictated: 11/04/2017 Within 30 days and on chart., H&P Addendum completed by physician on day of procedure. (MUST COMPLETE FOR ALL OUTPATIENTS). 10::38 Lab Result : BUN 22 mg/dl 10::38 Lab Result : Hemoglobin 13.8 g/dl 10::38 Lab Result : Creatinine 1.1 mg/dl 10::38 Lab Result : Hematocrit 40.8 % 10::41 Lab results completed and on chart. 10:02:17 Derrell Maria Teresa RT(R) sent for patient. Start room use. 10:10:30 Patient received from Pre/Post Procedure Room to CCL 1 Alert and oriented. Tansferred to table in Supine position. 10:10:31 Warm blankets applied, and al hugger turned on for patient comfort. 10:10:32 Correct patient and procedure confirmed by team. 10:10:33 ECG and BP/O2 sat monitors applied to patient. 10:10:34 Pre-procedure instructions explained to patient. 10:10:34 Pre-op teaching completed and patient verbalized understanding. 10:10:37 Family in patients room. 10:10:38 Patient NPO since Midnight. 10:10:42 Patient allergic to No known allergies 10:11:15 0.9% NaCl 100 ml/hr I.V. was administered by Anton Oleary RN; Per physician; 10:11:27 Oxygen 2 l/min etCO2 Nasal cannula was administered by Anton Oleary RN; Per physician; 10:11:37 Heparin Flush Bag (1000units/500ml NS) 2 bags added to field was administered by Anton Oleary RN; used for procedure; 10:11:49 Lidocaine 2% 20ml vial added to field was administered by Anton Oleary RN; for local anesthetic; 10:13:17 Full Disclosure recording started 10:13:21 Is the patient allergic to Iodine/contrast media? No. 10:13:22 Is patient on blood thinner?Yes 10:13:25 ACC The patient was administered the following blood thiners within the last 24 hours: ACCPlavix 10:13:29 Patient diabetic? Yes. 10:13:30 If diabetic: On Metformin? Yes 10:13:33 If on Metformin: Last Dose? 11/05/2017 10:13:38 Previous problem with sedation/anesthesia? No ? 10:13:40 Snore? Yes 10:13:41 Sleep apnea? No 10:13:42 Deviated septum? No 10:13:43 Opens mouth fully? Yes 10:13:44 Sticks out tongue? Yes 10:13:46 Airway obstruction? No ? 10:13:48 Dentures? No ? 10:13:55 Pre procedure: right dorsailis pedis pulse 2+ Normal; easily identifiable; not easily obliterated 10:13:59 Patient pain scale 0/10 ?. 10:14:13 PATIENT STATES CANT GET A GOOD DEEP BREATH 10:14:21 IV patent on arrival in left forearm with 0.9% NaCl at [facility]. 10:14:28 Right groin area was prepped with chlora-prep and draped in sterile fashion 10:14:29 Alarms reviewed by R. N. 10:14:30 Sharps counted by scrub and verified by R.N. 10:14:33 Use device set Femoral Dx 10:14:34 ACIST Syringe (87801) opened to sterile field. 10:14:35 Bag Decanter (2002S) opened to sterile field. 10:14:36 ACIST Hand Control (67435) opened to sterile field. 10:14:36 ACIST Manifold (42381) opened to sterile field. 10:14:37 Tegaderm 4 x 4 (1626W) opened to sterile field. 10:14:40 Medline Cath Pack ([id number]) opened to sterile field. 10:14:41 DIAGNOSTIC WIRE .035 260cm J wire (480449) opened to sterile field. 10:14:42 DIAGNOSTIC Multipack 5Fr catheter set (KR3562) opened to sterile field. 10:17:04 Vital chart was started 10:20:19 Baseline sample Acquired. 10:20:22 Rhythm: sinus bradycardia 10:21:01 Patient Height : 5.9 inches 10:21:05 Patient Weight : 182 lbs 10:21:41 Vital chart was stopped 10:21:44 Vital chart was started 10:25:35 Zero performed for pressure channel P1 10:41:41 --------ALL STOP TIME OUT------ 10:41:42 Final Timeout: patient, procedure, and site verified with staff and physician. All members of the team are in agreement. 10:41:45 Right groin site verified by team. 10:41:49 Physical assessment completed. ASA score P 2 - A patient with mild systemic disease as per Rick Kumar MD. 10:41:53 Sedation plan: IV Moderate Sedation Medication:Versed, Fentanyl 10:42:26 Versed 1 mg I.V. was administered by Anton Oleary RN; for sedation; 10:42:51 Fentanyl 50 mcg I.V. was administered by Anton Oleary RN; for sedation; 10:45:15 Procedure started. 10:45:29 Local anesthetic to right femoral artery with Lidocaine 2% by Rick Kumar MD.INITIAL ACCESS ONLY 10:45:56 SHEATH Prelude 5Fr 0.035 ([id number]) opened to sterile field. 10:46:17 Versed 1 mg I.V. was administered by Anton Oleary RN; for sedation; 10:46:22 Fentanyl 50 mcg I.V. was administered by Anton Oleary RN; for sedation; 10:47:28 A 5 Fr sheath was inserted into the Right Femoral artery 10:47:43 A MULTIPACK Pigtail 5 Fr catheter was advanced over the wire and used for Procedure. 10:47:57 Injector settings: Ml/sec: 10, Volume: 20, 10:47:59 LV gram done using ESTES 10:48:34 EF : 60 % 10:48:36 Catheter removed. 10:48:42 A MULTIPACK JL 4.0 5Fr catheter was advanced over the wire and used for Procedure. 10:49:23 LCA angiography performed. 10:50:30 Catheter removed. 10:51:04 A MULTIPACK 3DRC 5Fr catheter was advanced over the wire and used for Procedure. 10:51:27 RCA angiography performed. 10:51:32 Catheter removed. 10:51:54 SHEATH 6FR Brogan (CCD580) opened to sterile field. 10:52:01 Sheath upsized to a 6 Fr Short. 10:52:12 GUIDE 6FR XBLAD 4.0 catheter ([id number]) opened to sterile field. 10:52:19 INFLATOR Merit BasixCompak (EG1595) opened to sterile field. 10:52:32 [place] IVUS Catheter (23784N) opened to sterile field. 10:53:04 6 Fr XBLAD 4 guide catheter was inserted over the wire 10:53:07 CHOICE PT Extra Support 182cm wire ([id number]) opened to sterile field. 10:53:34 CHOICE 182 wire advanced. 10:54:06 Wire advanced across lesion. 10:54:12 IVUS catheter advanced over wire. 10:55:38 IVUS pass to LAD lesion performed. 10:55:39 IVUS catheter removed over wire. 10:55:46 Heparin Bolus 4000 units I.V. was administered by Anton Oleary RN; for anticoagulation; 10:57:27 Place stent Inflation Number: 1 A DENISSE RX 3.5 x 38 stent ([id number]) was prepped and advanced across the Mid LAD. The stent was deployed at 21 YVAN for 0:10 (min:sec). 10:57:52 Inflation number: 2 The stent balloon was then re-inflated across the Mid LAD to 9 YVAN for 0:00 (min:sec). 10:58:29 Stent catheter was removed intact over wire. 10:58:29 Wire removed. 10:58:30 Guide catheter removed. 10:58:37 EXOSEAL 6Fr (EX600) opened to sterile field. 10:59:33 Sheath removed intact; hemostasis achieved with Exoseal to the Right Femoral artery. 10:59:44 Procedure ended.(Physican Out) 11:01:15 Fluoroscopy time 04.30 minutes. 11::19 Fluoroscopy dose: 66409 mGy 11::19 Flurop Dose total: 93909 11:01:22 Contrast amount:Isovue 300 104ml. 11:01:23 Sharps counted by scrub and verified by R.N. 11:01:29 Post-op/insertion site Left Femoral artery dressed using a 4 x 4 and Tegaderm. 11:01:32 Post right femoral artery:stable, soft, clean and dry 11:01:35 Post procedure: right dorsailis pedis pulse 2+ Normal; easily identifiable; not easily obliterated. 11:01:38 Post-procedure physical assessment completed. ASA score P 2 - A patient with mild systemic disease as per Rick Kumar MD. 11:01:41 Post procedure rhythm: unchanged. 11:01:43 Estimated blood loss: 10 ml 11:01:44 Post procedure instruction explained to patient.Patient verbalizes understanding. 11:01:44 Patient needs reinforcement of post procedure teaching. 11:02:38 Procedure type changed to Cath procedure, Diagnostic procedure, LHC, LHC w/Coronaries, FFR/IVUS, Intra-Coronary IVUS Initial, Sedation Charges, Moderate Sedation up to 15 minutes, PCI procedure, Coronary Stent, Coronary Stent Initial 11:03:39 Procedure and supply charges have been captured, reviewed, submitted and are correct. 11:03:41 Procedure Complication : No complications 11:03:43 See physician's report for complete and final results. 11:03:44 Report given to Pre/Post Procedure Room. 11:03:47 Patient transfered to Pre/Post Procedure Room with Bed. 11:03:48 Procedure ended. 11:03:48 Full Disclosure recording stopped 11:03:51 End room use (Document Last) 11:04:18 Vital chart was stopped Intervention Summary Intervention Notes Time ActionType Lesion and Equipment Used Action# Pressure Duration Attributes 10:57:27 Place stent Mid LAD DENISSE RX 3.5 x 1 21 00:10 38 stent ([id number]) 10:57:52 Reinflate Mid LAD DENISSE RX 3.5 x 2 9 00:00 stent 38 stent balloon ([id number]) Device Usage Item Name Manufacture Quantity Catalog Number Hospital Part Current Minimal Lot# / Charge Number Stock Stock Serial# Code ACIST Syringe Acist 1 07879 161704 238414 [id number] 20 (28114) Medical Systems Inc Bag Decanter Microtek 1 2001S 519613 23924 425125 5 (2001S) Medical Inc. ACIST Hand Acist 1 10785 335729 772484 349782 5 Control (57504) Medical Systems Inc ACIST Manifold Acist 1 79058 832608 754521 152180 5 (94810) Medical Systems Inc Tegaderm 4 x 4 3M 1 1626W 137219 840162 229956 5 (1626W) Medline Cath Cardinal 1 [id number] 782535 37974 427218 5 [place] [employer] ([id number]) DIAGNOSTIC WIRE St Chris 1 859594 193606 126960 391811 30 .035 260cm J wire (325321) DIAGNOSTIC Cardinal 1 NZ4207 794753 24072 890266 30 Multipack 5Fr Health catheter set (KF6667) SHEATH Prelude Merit 1 TRL-5A-38-035 575983 656556 538758 5 5Fr 0.035 Medical ([id number]) MULTIPACK Cardinal 1 164218 5 Pigtail 5 Fr Health catheter MULTIPACK JL Cardinal 1 858716 5 4.0 5Fr Health catheter MULTIPACK 3DRC Cardinal 1 193293 5 5Fr catheter Health SHEATH 6FR Terumo 1 WMG492 812340 131550 823327 40 Brogan (CGB949) GUIDE 6FR XBLAD Cardinal 1 [id number] 329993 416963 627276 3 4.0 catheter Health ([id number]) INFLATOR Merit Merit 1 BI2212 288121 827421 756187 15 BasixCommoRed Aril Medical (RC9388) [place] 1 81935I 688433 020707 019157 8 [place] Eag[place] IVUS Catheter (32395R) CHOICE PT Extra Mcclure 1 [id number] 296019 595013 783778 5 Support 182cm Scientific wire ([id number]) DENISSE RX 3.5 x Medtronic 1 [id number] 035664 0468285 688128 5 [id number] 38 stent ([id number]) EXOSEAL 6Fr Cardinal 1 EX600 210808 143823 804363 10 (EX600) Health Signature Audit [place] Stage Time Signature Unsigned Intra-Procedure 11/06/2017 Meeta Dumont 11:04:15 AM RT(R) Signatures Monitor : Meeta Dumont Signature : RT Date : Time : [facility] [address] [place] [address]
[2017-11-06] MEDS ORDERED: GLUCOTROL 5 MG T5 MG PO (08:21)
[2017-11-06] MEDS ORDERED: PLAVIX75 MG PO (08:24)
[2017-11-06 08:39] VITALS: BP 128/58; Ht 172.7 cm; Wt 84.1 kg
[2017-11-06 08:39] LABS: BASOPHILS 0.4 % (0-2); EOSINOPHILS 6.7 % (0-7); HEMATOCRIT 40.8 % (42.0-54.0); HEMOGLOBIN 13.8 g/dL (13.5-17.5); IMMATURE GRANULOCYTES 0.2 % (0-5); LYMPHOCYTES 29.7 % (15-50); MCH 32.9 pg (26.0-34.0); MCHC 33.8 g/dL (31.0-37.0); MCV 97.1 fL (80.0-100.0); MEAN PLATELET VOLUME 10.5 fL (7.4-10.4); MONOCYTES 9.8 % (2-11); NEUTROPHILS 53.2 % (40-80); PLATELET COUNT 162 10x3/uL (130-400); RDW 12.7 % (11.5-14.5); WBC 4.5 10x3/uL (4.8-10.8)
[2017-11-06 09:06] LABS: ANION GAP 10.8 mmol/L (8-16); CALCIUM 9.3 mg/dL (8.5-10.1); CARBON DIOXIDE 27.3 mmol/L (21.0-32.0); CREATININE - SERUM 1.1 mg/dL (0.6-1.3); POTASSIUM - SERUM 3.1 mmol/L (3.5-5.1)
== END 2017-11-06 15:10 | disposition home or self-care (01) ==
LOC: D.CATH 07:57
PROVIDERS: Internal Medicine Interventional Cardiology
DX: I25.119 Atherosclerotic heart disease of native coronary artery with unspecified angina pectoris (principal); Z01.812 Encounter for preprocedural laboratory examination
CPT/HCPCS: 93458; 92978; C9600

== ENCOUNTER 2017-11-10 22:07 | Emergency (ER) | payer MEDICARE, OTHER ==
[2017-11-06 08:39] VITALS: Ht 172.7 cm; Wt 81.2 kg
[~2017-11-10] VITALS: Ht 172.7 cm; Wt 81.2 kg
[2017-11-10 23:06] LABS: HEMATOCRIT 35.8 % (42.0-54.0); HEMOGLOBIN 12.3 g/dL (13.5-17.5); LYMPHOCYTES 30.3 % (15-50); MCH 32.6 pg (26.0-34.0); MCHC 34.4 g/dL (31.0-37.0); MEAN PLATELET VOLUME 9.8 fL (7.4-10.4); NEUTROPHILS 61.8 % (40-80); PLATELET COUNT 158 10x3/uL (130-400); RBC 3.77 10x6/uL (4.20-6.10); RDW 12.8 % (11.5-14.5); WBC 5.5 10x3/uL (4.8-10.8)
[2017-11-10 23:14] LABS: INR 1.01 (0.85-1.17); PROTIME 12.9 SECONDS (11.6-15.0)
[2017-11-10 23:16] LABS: APTT 27.8 SECONDS (22.8-39.4)
[2017-11-10 23:17] LABS: D-DIMER-QUANTITATIVE 0.38 ug/mLFEU (0.20-0.54)
[2017-11-10 23:18] LABS: ALBUMIN 3.4 g/dL (3.4-5.0); ALKALINE PHOSPHATASE 43 U/L (46-116); ALT (SGPT) 31 U/L (10-68); CALC OSMOLALITY 291 mosm/kg (275-300); CALCIUM 9.4 mg/dL (8.5-10.1); CARBON DIOXIDE 29.9 mmol/L (21.0-32.0); CHLORIDE - SERUM 105 mmol/L (98-107); CREATININE - SERUM 1.2 mg/dL (0.6-1.3); GLUCOSE 159 mg/dL (74-106); POTASSIUM - SERUM 3.4 mmol/L (3.5-5.1); PROTEIN - SERUM 6.7 g/dL (6.4-8.2); SODIUM 144 mmol/L (136-145); UREA NITROGEN 19 mg/dL (7-18); eGFR NON AFRICAN AMERICAN 63 mL/min (90-120)
[2017-11-10 23:31] LABS: CKMB 1.6 U/L (0.0-3.6); CREATINE KINASE 115 UL (21-232); PRO BNP 365 pg/mL (0-125); TROPONIN-I 0.016 ng/mL (0.000-0.060)
== END 2017-11-11 03:44 | disposition home or self-care (01) ==
LOC: D.ER 22:07
PROVIDERS: Family Medicine
DX: R06.00 Dyspnea, unspecified (principal); F41.9 Anxiety disorder, unspecified; K59.00 Constipation, unspecified; R00.1 Bradycardia, unspecified

== ENCOUNTER 2017-11-12 16:27 | Inpatient (IN) | payer MEDICARE, OTHER ==
[~2017-11-12] VITALS: Ht 172.7 cm; Wt 83.7 kg
--- NOTE | ~2017-11-12 | CN ---
PATIENT NAME:LEILANI NETTLES MEDICAL RECORD: [id number] : 41 LOCATION:D.MS [facility]26 ADMIT DATE: 11/12/17 ACCOUNT: [id number] CONSULTING PHYSICIAN: WILVER SAMANO MD REFERRING PHYSICIAN: OSCAR BAKER DO DATE OF CONSULTATION: 11/13/2017 HISTORY OF PRESENT ILLNESS: A 72-year-old gentleman with known history of coronary artery disease, status post intervention, has history of hypertension, essential tremor, paroxysmal atrial fibrillation. He has been having marked dyspnea over the past 2-3 weeks as well as fatigability. He underwent stenting approximately a week ago without improvement in symptomatology. He does have markedly bradycardia, on combination of both sotalol and propranolol. We were asked to see him concerning his cardiovascular status. PAST MEDICAL HISTORY: Includes: 1. History of hypertension. 2. Hyperlipidemia. 3. Atrial fibrillation, status post cardioversion. 4. Severe essential tremors. 5. Diabetes mellitus. MEDICATIONS: Include Janumet b.i.d., Lotrel 5 b.i.d., Zonegran 300 mg at bedtime, aspirin 81 every day, propranolol 80 b.i.d., lovastatin 20 every day, losartan 100/12.5, Plavix 75 every day, sotalol 120 b.i.d. ALLERGIES: None known. SOCIAL HISTORY: Retired, nonsmoker, social drinker, has some difficulty with ADLs due to essential tremor. REVIEW OF SYSTEMS: The patient reports easy bruising but reports no swollen glands. The patient reports no fever, no night sweats, no significant weight gain, no significant weight loss. No significant exercise tolerance. The patient reports no dry eyes, no irritation, no vision change. Patient reports no difficulty hearing and no ear pain. Patient reports no frequent nose bleeds or nose and sinus problems. Patient reports on arm pain on exertion. No shortness of breath while lying down. No history of heart murmur. Patient reports no cough, no wheezing or coughing up blood. Patient reports no abdominal pain, no vomiting. Normal appetite. No diarrhea and not vomiting blood. No nausea and no constipation. Patient reports no incontinence. No difficulty urinating. No hematuria. No increased frequency. Patient reports no muscle aches. No weakness, no arthralgias, no back pain. No swelling of the extremities. Patient reports no abnormal mole, no jaundice, no rashes. Reports no loss of consciousness. No weakness and no numbness. No seizures, dizziness, or headaches. The patient reports no depression, no sleep disturbance, feeling safe in a relationship and no alcohol abuse. Patient reports on fatigue. Reports no runny nose or sinus pressure. No itching, no hives, and no frequent sneezing. PHYSICAL EXAMINATION: GENERAL: Pleasant gentleman in no acute distress. VITAL SIGNS: Blood pressure 130/57, pulse 45 and regular. HEENT: Normocephalic, atraumatic. NECK: No JVD or bruit. CONSULT REPORT [id number] LEILANI NETTLES HEART: Regular, bradycardic. A II/ systolic ejection murmur. LUNGS: Good air excursion. ABDOMEN: Soft, nontender. EXTREMITIES: Pulses 2+ with no edema. DIAGNOSTIC DATA: ECG shows marked sinus bradycardia. IMPRESSION: Suspect some of symptomology from bradyarrhythmias. We will change his sotalol to dronedarone. Hopefully, this not give the same SA phil slowing. LV function has been normal in the past, so doubt true myopathic process. Intervention based on the above. TRANSINT:[id number] Voice Confirmation ID: [id number] DOCUMENT ID: [id number] WILVER SAMANO MD at 0804 CC: [id number] DICTATION DATE: 11/13/17 0956 SELLING MANAGER: 11/13/17 1249 DIS IN 11/14/17 [id number] [place] [address]
[2017-11-12 17:41] LABS: BASOPHILS 0.5 % (0-2); EOSINOPHILS 5.3 % (0-7); HEMOGLOBIN 13.3 g/dL (13.5-17.5); IMMATURE GRANULOCYTES 0.2 % (0-5); LYMPHOCYTES 39.7 % (15-50); MCH 32.8 pg (26.0-34.0); MCHC 33.3 g/dL (31.0-37.0); MEAN PLATELET VOLUME 11.1 fL (7.4-10.4); MONOCYTES 9.1 % (2-11); NEUTROPHILS 45.2 % (40-80); PLATELET COUNT 171 10x3/uL (130-400); RBC 4.06 10x6/uL (4.20-6.10); RDW 12.5 % (11.5-14.5); WBC 5.6 10x3/uL (4.8-10.8)
[2017-11-12 17:47] VITALS: BP 142/68; BMI 27.2
[2017-11-12 17:49] LABS: MCV 98.5 fL (80.0-100.0)
[2017-11-12 17:59] LABS: ALBUMIN 3.8 g/dL (3.4-5.0); ANION GAP 11.1 mmol/L (8-16); BILIRUBIN - TOTAL 0.9 mg/dL (0.2-1.3); CALCIUM 8.9 mg/dL (8.5-10.1); CARBON DIOXIDE 27.9 mmol/L (21.0-32.0); CREATININE - SERUM 1.2 mg/dL (0.6-1.3); PROTEIN - SERUM 6.9 g/dL (6.4-8.2)
[2017-11-12 20:00] VITALS: BP 134/61
[2017-11-13 04:00] VITALS: BP 135/63
[2017-11-13 04:53] LABS: BASOPHILS 0.5 % (0-2); EOSINOPHILS 7.5 % (0-7); HEMATOCRIT 36.3 % (42.0-54.0); HEMOGLOBIN 11.9 g/dL (13.5-17.5); LYMPHOCYTES 40.4 % (15-50); MCH 31.8 pg (26.0-34.0); MCHC 32.8 g/dL (31.0-37.0); MCV 97.1 fL (80.0-100.0); MEAN PLATELET VOLUME 10.5 fL (7.4-10.4); MONOCYTES 13.1 % (2-11); NEUTROPHILS 38.5 % (40-80); PLATELET COUNT 137 10x3/uL (130-400); RBC 3.74 10x6/uL (4.20-6.10); RDW 12.5 % (11.5-14.5); WBC 4.3 10x3/uL (4.8-10.8)
[2017-11-13 05:12] LABS: ALBUMIN 3.1 g/dL (3.4-5.0); ANION GAP 9.4 mmol/L (8-16); BILIRUBIN - TOTAL 0.8 mg/dL (0.2-1.3); CALCIUM 8.3 mg/dL (8.5-10.1); CARBON DIOXIDE 26.5 mmol/L (21.0-32.0); CREATININE - SERUM 1.1 mg/dL (0.6-1.3); PROTEIN - SERUM 6.1 g/dL (6.4-8.2)
[2017-11-13 05:13] LABS: POTASSIUM - SERUM 2.9 mmol/L (3.5-5.1)
[2017-11-13 07:10] LABS: APPEARANCE CLEAR (CLEAR); BILIRUBIN NEGATIVE (NEGATIVE); COLOR YELLOW (YELLOW); GLUCOSE NEGATIVE (NEGATIVE); KETONE NEGATIVE (NEGATIVE); NITRITE NEGATIVE (NEGATIVE); PROTEIN NEGATIVE (NEGATIVE); SPECIFIC GRAVITY 1.005 (1.005-1.020); UROBILINOGEN NORMAL (NORMAL)
[2017-11-13 09:21] VITALS: BP 130/57
[2017-11-13 12:31] VITALS: BP 101/56
[2017-11-13 13:46] VITALS: Ht 172.7 cm; Wt 83.7 kg
[2017-11-13 16:53] VITALS: BP 150/84
[2017-11-13 20:00] VITALS: BP 134/66
[2017-11-14] VITALS: BP 125/62
[2017-11-14 04:00] VITALS: BP 137/79
[2017-11-14 04:46] LABS: BASOPHILS 0.6 % (0-2); EOSINOPHILS 5.7 % (0-7); HEMATOCRIT 37.2 % (42.0-54.0); HEMOGLOBIN 12.3 g/dL (13.5-17.5); IMMATURE GRANULOCYTES 0.2 % (0-5); LYMPHOCYTES 37.2 % (15-50); MCH 32.5 pg (26.0-34.0); MCHC 33.1 g/dL (31.0-37.0); MCV 98.4 fL (80.0-100.0); MEAN PLATELET VOLUME 10.7 fL (7.4-10.4); MONOCYTES 9.7 % (2-11); NEUTROPHILS 46.6 % (40-80); PLATELET COUNT 138 10x3/uL (130-400); RBC 3.78 10x6/uL (4.20-6.10); RDW 12.6 % (11.5-14.5); WBC 4.8 10x3/uL (4.8-10.8)
[2017-11-14 05:08] LABS: ALBUMIN 3.1 g/dL (3.4-5.0); ALKALINE PHOSPHATASE 33 U/L (46-116); ALT (SGPT) 26 U/L (10-68); BILIRUBIN - TOTAL 0.77 mg/dL (0.2-1.3); CALC OSMOLALITY 288 mosm/kg (275-300); CALCIUM 8.3 mg/dL (8.5-10.1); CARBON DIOXIDE 23.3 mmol/L (21.0-32.0); CHLORIDE - SERUM 112 mmol/L (98-107); CREATININE - SERUM 0.9 mg/dL (0.6-1.3); GLUCOSE 147 mg/dL (74-106); POTASSIUM - SERUM 3.5 mmol/L (3.5-5.1); PROTEIN - SERUM 6.3 g/dL (6.4-8.2); SODIUM 144 mmol/L (136-145); UREA NITROGEN 9 mg/dL (7-18); eGFR NON AFRICAN AMERICAN 88 mL/min (90-120)
[2017-11-14 07:51] VITALS: BP 149/69
[2017-11-14 12:24] VITALS: BP 120/58
[2017-11-14] MEDS ORDERED: MULTAQ400 MG PO (14:19)
== END 2017-11-14 15:00 | disposition home or self-care (01) | DRG 309 ==
LOC: D.MS 16:27
PROVIDERS: Family Medicine
DX: R00.1 Bradycardia, unspecified (principal); I24.9 Acute ischemic heart disease, unspecified; K59.00 Constipation, unspecified; E87.6 Hypokalemia; E11.9 Type 2 diabetes mellitus without complications; I10 Essential (primary) hypertension; I25.10 Atherosclerotic heart disease of native coronary artery without angina pectoris; I48.0 Paroxysmal atrial fibrillation; G25.0 Essential tremor

== ENCOUNTER → 2018-03-31 08:38 | Outpatient (CLI) | payer MEDICARE, OTHER ==
[2017-11-13 13:46] VITALS: BMI 27.2
[~2018-03-31 08:38] MED LIST changes: +MULTAQ400 MG PO
== END | disposition home or self-care (01) ==
LOC: D.RT 08:38
DX: R06.00 Dyspnea, unspecified (principal)

== ENCOUNTER → 2018-04-17 15:52 | Outpatient (CLI) | payer MEDICARE, OTHER ==
[2017-11-13 13:46] VITALS: BMI 27.2
== END | disposition home or self-care (01) ==
LOC: D.US 15:52
DX: R33.9 Retention of urine, unspecified (principal)

== ENCOUNTER → 2018-04-17 18:09 | Outpatient (CLI) | payer MEDICARE, OTHER ==
[2017-11-13 13:46] VITALS: BMI 27.2
== END | disposition home or self-care (01) ==
LOC: D.LABREF 18:09
DX: R31.9 Hematuria, unspecified (principal)

== ENCOUNTER → 2018-09-18 17:51 | Outpatient (CLI) | payer MEDICARE, OTHER ==
[2017-11-13 13:46] VITALS: BMI 27.2
[2018-09-18 18:46] LABS: ANION GAP 14.9 mmol/L (8-16); CALCIUM 8.6 mg/dL (8.5-10.1); CARBON DIOXIDE 26.2 mmol/L (21.0-32.0); CREATININE - SERUM 1.1 mg/dL (0.6-1.3); MAGNESIUM - SERUM 1.5 mg/dL (1.8-2.4); POTASSIUM - SERUM 4.1 mmol/L (3.5-5.1)
== END | disposition home or self-care (01) ==
LOC: D.LABREF 17:51
PROVIDERS: ATTEND Nurse Practitioner Adult Health
DX: I48.91 Unspecified atrial fibrillation (principal)

== ENCOUNTER 2018-10-31 09:57 | Outpatient (CLI) | payer MEDICARE, OTHER ==
[~2018-10-31] VITALS: Ht 172.7 cm; Wt 83.6 kg
--- NOTE | ~2018-10-31 | HEMODYNAMI ---
PATIENT:LEILANI NETTLES MEDICAL RECORD: [id number] : 41 LOCATION:D.CAT ADMISSION DATE: 10/31/18 Generatedon:10/31/201812:30 Patient name: LEILANI NETTLES Patient #: [id number] SSN: DO B: 1945 Date of study: 10/31/2018 Page: Of Hemodynamic Procedure Report Patient Data Patient Demographics Procedure consent was obtained First Name: LEILANI Gender: Male Last Name: YOON : 1945 [facility] Initial: RYLEY Age: 73 year(s) Patient #: [id number] Race: Additional ID: [id number] Contact details Address: [address] [place] [address] [place] State: [place] City: [place] Zip code: [address] Past Medical History History of disease Date Diagnosis Comments Arrhythmias - Supraventricular tachycardias->Persistent AF Diabetes Hypertension Allergies: No known allergies Admission Admission Data Admission Date: 10/31/2018 Admission Time: 9:57 Procedure Procedure Types Cath Procedure Diagnostic Procedure Cardioversion External Procedure Description Procedure Date Procedure Date: 10/31/2018 Procedure Start Time: 12:19 Procedure End Time: 12:23 Procedure Staff Name Function Rick Kumar MD Performing Physician Maine Ennis RT Monitor Anton Oleary RN Nurse Jordan Sanchez RT Scrub Shaka Pichardo Jr, CRNA Additional personnel Procedure Data Cath Procedure Fluoroscopy Diagnostic fluoroscopy Total fluoroscopy Time: 0 time: 0 min min Diagnostic fluoroscopy Total fluoroscopy dose: 0 dose: 0 mGy mGy Contrast Material Contrast Material Type Amount (ml) Isovue 300 0 Estimated blood loss: 0 ml Procedure Complications No complications Procedure Medications Medication Administration Route Dosage 0.9% NaCl I.V. 100 ml/hr Oxygen etCO2 Nasal cannula 5 l/min Refer to Anesthesia Notes for Sedation Medications Hemodynamics Rest Heart Rate: 57 (bpm) Snapshots Pre Cath Intra NCS Post Cath Vital Signs Time Heart Resp SPO2 etCO2 NIBP (mmHg) Rhythm Pain Sedation Rate (ipm) (%) (mmHg) Status Level (bpm) 12:15:28 47 16 100 29.1 147/79(100) NSR 0 (11) 10(A) , No pain 12:20:53 62 18 100 0 147/80(120) NSR 0 (11) 8(A) , No pain 12:24:28 48 12 100 20.9 133/75(87) NSR 0 (11) 9(A) , No pain Medications Time Medication Route Dose Verified Delivered Reason Notes Effective ness by by 12:18:09 0.9% NaCl I.V. 100 Anton Anton Per ml/hr Anirudh Oleary physician RN RN 12:18:25 Oxygen etCO2 5 Anton Anton for low Nasal l/min Lorigan Lorigan 02 sats cannula RN RN 12:18:55 Refer to Antonabraham Walton for Anesthesia Anirudh Oleary sedation Notes for RN RN Sedation Medications Procedure Log Time Note 12:08:51 Informed consent obtained and on chart 12:09:22 Jordan TEJADA(R) sent for patient. Start room use. 12:09:22 Time tracking: Regular hours (M-F 7:00 - 5:00) 12:09:26 Plan of Care:Hemodynamics will remain stable., Cardiac rhythm will remain stable., Comfort level will be maintained., Respiratory function will remain adequate., Patient/ family verbilizes understanding of procedure., Procedure tolerated without complication., Recovers from procedure without complications.. 12:09:37 Patient received from Pre/Post Procedure Room to CCL 2 Alert and oriented. Tansferred to table in Supine position. 12:09:38 Warm blankets applied, and al hugger turned on for patient comfort. 12:09:39 Correct patient and procedure confirmed by team. 12:09:39 ECG and BP/O2 sat monitors applied to patient. 12:14:16 Vital chart was started 12:14:18 Baseline sample Acquired. 12:14:27 Rhythm: atrial flutter 12:14:28 Full Disclosure recording started 12:14:33 H&P Date Dictated: 10/31/2018 Within 30 days and on chart., H&P Addendum completed by physician on day of procedure. (MUST COMPLETE FOR ALL OUTPATIENTS). 12:14:34 Pre-procedure instructions explained to patient. 12:14:35 Pre-op teaching completed and patient verbalized understanding. 12:14:36 Family in waiting room. 12:14:38 Patient NPO since Midnight. 12:14:40 Is the patient allergic to Iodine/contrast media? No. 12:14:41 Was the patient premedicated? No 12:14:42 Is patient on blood thinner?Yes 12:14:46 ACC The patient was administered the following blood thiners within the last 24 hours: Xarelto 12:14:48 Patient diabetic? Yes. 12:14:49 If diabetic: On Metformin? Yes 12:15:11 Previous problem with sedation/anesthesia? No ? 12:15:12 Snore? Yes 12:15:13 Sleep apnea? No 12:15:14 Deviated septum? No 12:15:15 Opens mouth fully? No 12:15:16 Sticks out tongue? Yes 12:15:19 Airway obstruction? No ? 12:15:21 Dentures? No ? 12:15:25 Pre procedure: right dorsailis pedis pulse 2+ Normal; easily identifiable; not easily obliterated 12:15:27 Pre procedure: left dorsailis pedis pulse 2+ Normal; easily identifiable; not easily obliterated 12:15:33 Lab results completed and on chart. 12:15:37 Mid Chest area was prepped with chlora-prep and draped in sterile fashion 12:15:38 Alarms reviewed by R. N. 12:15:38 Sharps counted by scrub and verified by R.N. 12:18:09 0.9% NaCl 100 ml/hr I.V. was administered by Anton Oleary RN; Per physician; 12:18:20 Physician paged 12:18:21 Physician arrived 12:18: --------ALL STOP TIME OUT------ 12:18:21 Final Timeout: patient, procedure, and site verified with staff and physician. All members of the team are in agreement. 12:18:25 Oxygen 5 l/min etCO2 Nasal cannula was administered by Anton Oleary RN; for low 02 sats; 12:18:29 Maximum allowable Isovue 300 dose 300ml. Physician notified. (300ml for normal creatinines. For patients with creatinine of 1.7 or higher multiply weight(kg) x 5 divided by creatinine.) 12:18:34 Fire Safety Assessment: A--An alcohol-based skin anteseptic being used preoperatively., C--Open oxygen or nitrous oxide is being used., D--An ESU, laser, or fiber-optic light is being used. 12:18:38 Physical assessment completed. ASA score P 2 - A patient with mild systemic disease as per Rick Kumar MD. 12:18:43 Sedation plan: TIVA Medication:Propofol 12:18:49 Shaka Pichardo Jr DRAW TENDER present and monitoring patient for TIVA. 12:18:50 Quick combo pads placed on patients chest and back. 12:18:55 Refer to Anesthesia Notes for Sedation Medications was administered by Anton Oleary RN; for sedation; 12:18:55 Defibrillator synced and charged to 275 Joules. 12:18:59 Procedure started. 12:21:10 Shock delivered. 12:21:41 Patient cardioverted to sinus rhythm . 12:21:53 Procedure ended.(Physican Out) 12:22:25 Fluoroscopy time 00.00 minutes. 12:22:27 Fluoroscopy dose: 0 mGy 12:22:27 Flurop Dose total: 0 12:22:30 Contrast amount:Isovue 300 0ml. 12:22:32 Sharps counted by scrub and verified by R.N. 12:22:33 Insertion/operative site no bleeding no hematoma. 12:22:37 Post Procedure Pulses reassessed and unchanged 12:22:39 Post procedure rhythm: sinus rhythm 12:22:42 Estimated blood loss: 0 ml 12:22:44 Post procedure instruction explained to patient.Patient verbalizes understanding. 12:22:44 Patient needs reinforcement of post procedure teaching. 12:22:49 Procedure and supply charges have been captured, reviewed, submitted and are correct. 12:22:54 Procedure Complication : No complications 12:22:56 Vital chart was stopped 12:22:57 See physician's report for complete and final results. 12:22:59 Report given to Pre/Post Procedure Room. 12:23:02 Patient transfered to Pre/Post Procedure Room with Stretcher. 12:23:04 Procedure ended. 12:23:04 Full Disclosure recording stopped 12:23:09 End room use (Document Last) 12:23:23 Quick Combo opened to sterile field. Device Usage Item Manufacture Quantity Catalog Hospital Part Current Minimal Lot# / Name Number Charge Number Stock Stock Kayla al# Code [place] [id number] Combo Signature Audit [place] Stage Time Signature Unsigned Intra-Procedure 10/31/2018 Maine Ennis 12:30:15 PM RT(R) Signatures Monitor : [place] Ennis RT Signature : Date : Time : [id number] [place] [address]
--- NOTE | ~2018-10-31 | OP ---
PATIENT NAME: LEILANI NETTLES MEDICAL RECORD: [id number] :41 LOCATION:D.CAT ADMISSION DATE: SURGEON: LAMIN MELISSA MD DATE OF OPERATION: 10/31/2018 PROCEDURE: DC cardioversion. INDICATION: Atrial fibrillation. Continuous heart rate, O2 saturation, blood pressure monitoring all undertaken. IV conscious sedation per anesthesia. He received 1 shock restoring sinus rhythm. OVERALL IMPRESSION: Successful DC cardioversion from atrial fibrillation to sinus rhythm. TRANSINT:[id number] Voice Confirmation ID: [id number] DOCUMENT ID: [id number] LAMIN MELISSA MD CC: [id number] DICTATION DATE: 10/31/18 1230 CIVIL PREPAREDNESS COORDINATOR: 10/31/18 1234 [facility] [address] [id number]
[2018-10-31] MEDS ORDERED: PROSCAR5 MG PO (10:20)
[2018-10-31] MEDS ORDERED: XARELTO15 MG PO (10:20)
[2018-10-31] MEDS ORDERED: ATIVAN0.5 MG PO (10:21)
[2018-10-31 10:29] VITALS: BP 136/70; Ht 172.7 cm; Wt 83.6 kg
[2018-10-31 10:50] LABS: BASOPHILS 0.3 % (0-2); EOSINOPHILS 6.7 % (0-7); HEMATOCRIT 39.8 % (42.0-54.0); HEMOGLOBIN 13.4 g/dL (13.5-17.5); IMMATURE GRANULOCYTES 0.3 % (0-5); LYMPHOCYTES 30.6 % (15-50); MCH 31.4 pg (26.0-34.0); MCHC 33.7 g/dL (31.0-37.0); MCV 93.2 fL (80.0-100.0); MEAN PLATELET VOLUME 10.6 fL (7.4-10.4); MONOCYTES 8.6 % (2-11); NEUTROPHILS 53.5 % (40-80); PLATELET COUNT 164 10x3/uL (130-400); RBC 4.27 10x6/uL (4.20-6.10); RDW 13.2 % (11.5-14.5); WBC 6.1 10x3/uL (4.8-10.8)
[2018-10-31 10:58] LABS: ANION GAP 12.9 mmol/L (8-16); CALCIUM 8.8 mg/dL (8.5-10.1); CARBON DIOXIDE 26.8 mmol/L (21.0-32.0); CREATININE - SERUM 1.1 mg/dL (0.6-1.3); INR 1.13 (0.85-1.17); POTASSIUM - SERUM 3.7 mmol/L (3.5-5.1)
--- NOTE | 2018-10-31 12:38 | NUR ---
PT ARRIVED BY STRETCHER. PLACED ON MONITORS. FAMILY AT BEDSIDE.
--- NOTE | 2018-10-31 12:55 | NUR ---
PT RESTING COMFORTABLY. TOLERATING WATER. DOES NOT WANT TO EAT. HE WANTS TO WAIT UNTIL HE CAN GO HOME TO EAT. DENIES NAUSEA. PT STILL IN NSR ON THE MONITOR. RATE 46.
--- NOTE | 2018-10-31 13:25 | NUR ---
LEFT FA PIV D/C'D WITH CATH TIP INTACT. PT TOLERATED WELL. DISCUSSED DISCHARGE INSTRUCTIONS WITH PT AND PT'S FAMILY. THEY VOICED UNDERSTANDING.
--- NOTE | 2018-10-31 13:30 | NUR ---
PT TAKEN OUT TO VEHICLE BY WHEELCHAIR. NO S/S OF DISTRESS NOTED. ALL BELONGINGS AND PAPERWORK IN HAND.
== END 2018-10-31 13:30 | disposition home or self-care (01) ==
LOC: D.CATH 09:57
PROVIDERS: ATTEND Internal Medicine Interventional Cardiology
DX: I48.91 Unspecified atrial fibrillation (principal)

== ENCOUNTER 2020-09-27 06:20 | Day surgery (SDC) | payer MEDICARE, OTHER ==
[2020-09-26 12:20] LABS: ANION GAP 9.5 mmol/L (8-16); CALCIUM 8.6 mg/dL (8.5-10.1); CARBON DIOXIDE 26.5 mmol/L (21.0-32.0); CREATININE - SERUM 1.1 mg/dL (0.6-1.3)
[2020-09-26 12:25] LABS: BASOPHILS 0.2 % (0-2); EOSINOPHILS 6.5 % (0-7); HEMATOCRIT 39.3 % (42.0-54.0); HEMOGLOBIN 12.9 g/dL (13.5-17.5); IMMATURE GRANULOCYTES 0.4 % (0-5); LYMPHOCYTE ABS# 1.85 10x3/uL (1.32-3.57); LYMPHOCYTES 34.2 % (15-50); MCH 30.9 pg (26.0-34.0); MCHC 32.8 g/dL (31.0-37.0); MEAN PLATELET VOLUME 9.5 fL (7.4-10.4); MONOCYTES 7.6 % (2-11); NEUTROPHIL ABS# 2.77 10x3/uL (1.78-5.38); NEUTROPHILS 51.1 % (40-80); PLATELET COUNT 138 10x3/uL (130-400); RBC 4.18 10x6/uL (4.20-6.10); RDW 12.7 % (11.5-14.5); WBC 5.4 10x3/uL (4.8-10.8)
[~2020-09-27] VITALS: Ht 172.7 cm; Wt 83.6 kg
[~2020-09-27 06:20] MED LIST changes: +ATIVAN0.5 MG PO; +BETAPACE 80 MG80 MG PO; +KLONOPIN0.5 MG PO; +PROSCAR5 MG PO; +XARELTO15 MG PO; +ZONISAMIDE50 MG PO; +[UNRECOGNIZED DRUG - OTHER] PO
[2020-09-27 07:24] VITALS: BP 113/76; Ht 172.7 cm; Wt 83.6 kg
[2020-09-27] MEDS ORDERED: HYDROCODON-ACE1 EA10 PO (09:10)
--- NOTE | 2020-09-27 09:27 | NUR ---
PT AWAKENING, OPA REMOVED
--- NOTE | 2020-09-27 09:58 | NUR ---
0951 ICE PACK PLACED, REVIEWED POST CARE AND TIME FRAME FOR DISCHARGE.
--- NOTE | 2020-09-27 11:23 | NUR ---
1105 ASSISSTED UP TO BR, UNABLE TO VOID, RETURNED TO BED, WILL GO AND LET THEIR DOG OUTSIDE AND DROP OFF RX.
--- NOTE | 2020-09-27 12:15 | NUR ---
PT DENIES PAIN AT THIS TIME. UNABLE TO VOID. REQUESTED ICE WATER. PT HAS ICE WATER AT BEDSIDE. WILL CONTINUE TO MONITOR.
--- NOTE | 2020-09-27 13:00 | NUR ---
1300 PT UNABLE TO VOID OF YET, STATES HE HAS AN ENLARGED PROSTATE AND ON USUAL DAYS HE HAS DIFFICULTY VOIDING. ASHLEY HUNTER SERVED. IV HAS COMPLETED AND DC'D WITH CATH INTACT.
--- NOTE | 2020-09-27 14:03 | NUR ---
1400 PT VOIDS LG AMT. CRITERIA MET FOR DISCHARGE, DENIES NEED FOR PAIN MED, GETTING DRESSED, WILL BE DISCHARGED IN WC. PT. EARLIER SIGNED DC INSTS. AND VOICED UNDERSTANDING.
--- NOTE | 2020-09-28 11:28 | OP ---
PATIENT NAME: LEILANI NETTLES MEDICAL RECORD: [id number] :41 LOCATION:D.OPS ADMISSION DATE: SURGEON: CRISTIANO PATTERSON MD DATE OF OPERATION: 09/27/2020 PREOPERATIVE DIAGNOSES: 1. Right inguinal hernia. 2. Hypertension. 3. Diabetes mellitus. 4. Hypercholesterolemia. 5. Atrial fibrillation. 6. Coronary artery disease. POSTOPERATIVE DIAGNOSES: 1. Right inguinal hernia. 2. Hypertension. 3. Diabetes mellitus. 4. Hypercholesterolemia. 5. Atrial fibrillation. 6. Coronary artery disease. PROCEDURE: Right inguinal hernia repair with medium PHS mesh. SURGEON: Cristiano Patterson MD DESCRIPTION OF PROCEDURE: The patient's right groin was prepped and draped in sterile fashion. An oblique incision was made above the inguinal ligament. Electrocautery was used to dissect through the subcutaneous tissues down to the external oblique fascia. This fascia was opened up to the external ring using electrocautery. The patient had 2 branches of the ilioinguinal nerve and these were high ligated. The patient had a direct hernia defect. We were able to isolate the patient's spermatic cord and a [place] was placed around it. The direct hernia defect was freed up. We could see that this was mainly fat-containing. We opened up the hernia defect and was able to open the preperitoneal space of Retzius. We then inserted the PHS mesh and sutured this down on all 4 sides using multiple interrupted 0 Vicryls. We irrigated out the wound bed and assured there was no sign of any bleeding. The external oblique fascia was closed with running 2-0 Vicryl. Clinton's was closed with interrupted 3-0 Vicryl and the skin was closed with running subcutaneous 5-0 Monocryl. COMPLICATIONS: None. CONDITION: Stable. ANESTHESIA: General endotracheal and local. BLOOD LOSS: Minimal. TRANSINT:[id number] Voice Confirmation ID: [id number] DOCUMENT ID: [id number] OPERATIVE REPORT [id number] LEILANI NETTLES CHRISTIAN MD at 1128 CC: OSCAR BAKER DO [id number] DICTATION DATE: 09/27/2016 C PYTHON DEVELOPER: 09/27/20 1434 [facility] 09/27/[address] [address]
== END 2020-09-27 14:10 | disposition home or self-care (01) ==
LOC: D.OPS 06:20
PROVIDERS: ATTEND Surgery
DX: K40.90 Unilateral inguinal hernia, without obstruction or gangrene, not specified as recurrent (principal); I10 Essential (primary) hypertension; E11.9 Type 2 diabetes mellitus without complications; E78.00 Pure hypercholesterolemia, unspecified; I25.10 Atherosclerotic heart disease of native coronary artery without angina pectoris; I48.0 Paroxysmal atrial fibrillation